=== PATIENT | male | born 1960 | race African-American/Black ===

== ENCOUNTER 2016-12-08 20:08 | Emergency (ER) | payer MEDICAID ==
[~2016-12-08] VITALS: Ht 165.1 cm; Wt 79.4 kg
[~2016-12-08 20:08] MED LIST: CYCLOBENZAPRINE10 MG ORAL; IBUPROFEN600 MG ORAL
[2016-12-08] MEDS ORDERED: Bacitracin Oint UD TOPIC ONE (20:45)
[2016-12-08] MEDS ORDERED: Lidocaine 1% Plain 30 ml INJ ONE (20:45)
[2016-12-08] MEDS ORDERED: BACTRIM DS TAB1 EAC1 ORAL (21:14)
[2016-12-08] MEDS ORDERED: CEPHALEXIN500 MG ORAL (21:14)
[2016-12-08] MEDS ORDERED: HYDROCHLOROTHIA25 MG ORAL (21:21)
[2016-12-08 21:29] VITALS: BP 146/100
--- NOTE | 2016-12-08 21:52 | Emergency Room Report ---
History of Present Illness General Chief Complaint: Eye Problems Source: Patient Present Illness [facility] The patient is a 56-year-old presenting for right eye redness and swelling to the left shoulder. The patient states that he colleague noticed that the patient's eye was red. The patient denies any injury to the eye and denies any changes in vision. He denies any pain to the eye. He denies any excess tearing or discharge from the eye. The patient has noticed a swelling to the left shoulder for the past month. He denies any injury. He denies any injections to this area. He states pain is a 3/10 dull ache and does not radiate. Worse with touch. He denies any discharge from the area. He denies any other symptoms including fever or chills, CP, SOB Allergies: Coded Allergies: PENICILLINS (Verified Adverse Reaction, Unknown, 07/23/15) Patient History Past Medical History: see triage record Pertinent Family History: none Reviewed Nursing Documentation: PMH: Agreed, PSxH: Agreed Nursing Documentation-PMH Past Medical History: No History, Except For Hx Asthma: Yes Review of Systems All Other Systems: negative except mentioned in HPI Physical Exam Vital Signs Date Time Temp Pulse Resp B/P Pulse Ox O2 Delivery O2 Flow Rate FiO2 12/08/16 20:24 98.2 80 16 161/108 99 Room Air Sp02 EP Interpretation: reviewed, normal General Appearance: no apparent distress, alert, GCS 15, non-toxic Head: normocephalic, atraumatic Eyes: right eye other - R eye lateral diffuse erythema. Subconjunctival hemorrhage, bilateral eye EOMI, bilateral eye PERRL ENT: hearing grossly normal, normal pharynx, no angioedema, normal voice Musculoskeletal: normal range of motion, tender - Lateral L shoulder over the abscess Neurologic: alert, oriented x3, responsive, motor strength/tone normal, sensory intact, speech normal Psychiatric: judgement/insight normal, memory normal, mood/affect normal, no suicidal/homicidal ideation Skin: normal color, other - There is a 3cm in diameter fluctuant mass of the L shoulder. TTP Lymphatic: no adenopathy Procedures Incision and Drainage Incision and Drainage : Consent: Verbal Site: L shoulder Blade Size: 11 I & D Procedure: betadine prep, sterile drapes applied Wound Location: upper extremity Wound's Depth, Shape: superficial, linear Wound Length (cm): 3 Wound Explored: contaminated Irrigated w/ Saline (ccs): 100 Anesthesia: 1% Lidocaine Volume Anesthetic (ccs): 3 Splint Applied?: No Sling Applied?: No Patient Tolerated: Well Complications: None Medical Decision Making PA Attestation Dr. Helton is my supervising physician. Patient management was discussed with my supervising physician Diagnostic Impression: Primary Impression: Hypertension Qualified Codes: I10 - Essential (primary) hypertension Additional Impressions: Subconjunctival hemorrhage Qualified Codes: H11.31 - Conjunctival hemorrhage, right eye Abscess ER Course The patient is a 56-year-old presenting for right eye redness and swelling to the left shoulder. Differential diagnoses considered but not limited to: abscess, cellulitis, insect bite Differential diagnoses considered but not limited to subconjunctival hemorrhage , allergic conjunctivitis, bacterial conjunctivitis, viral conjunctivitis, blepharitis, hordeolum PE: hypertensive. afebrile. NAD There is a R eye subconjunctival hemorrhage and an abscess to the L lateral shoulder. Betadine prep was used to clean the skin and surrounding area. One percent lidocaine without epinephrine was used to anesthetize the are of planned incision. A #11 blade was used to make an incision in the central area of fluctuance approximately 1/3 the size of the diameter of the abcess. Once the incision was made, purulent material was expressed with blood. Blunt dissection was then used to release loculations and expressed more purulent material. Once only blood appeard to be expressed from the incision, normal saline was used to irrigate the inside of the abscess. The wound was then cleaned and dressing applied with bacitracin. The patient is given a dose of hydrochlorothiazide in the ER and blood pressure has improved Patient will be discharged home with a prescription for hydrochlorothiazide and antibiotics and needs to followup with primary doctor. ER precautions given Last Vital Signs Date Time Temp Pulse Resp B/P Pulse Ox O2 Delivery O2 Flow Rate FiO2 12/08/16 21:29 97.7 77 16 146/100 97 Room Air Status: improved Disposition: HOME, SELF-CARE Condition: Improved Scripts Hydrochlorothiazide* (HYDROCHLOROTHIAZIDE*) 25 Mg Tablet 25 MG ORAL DAILY, #30 TAB Prov: SIVA DAVIDSON P.A. 12/08/16 Trimethoprim/Sulfamethoxazole 160/800* (BACTRIM DS TABLET*) 1 Each Tablet 1 TAB ORAL TWICE A DAY, #14 TAB Prov: SIVA DAVIDSON 12/08/16 Cephalexin* (KEFLEX*) 500 Mg Capsule 500 MG ORAL EVERY 6 HOURS, #28 CAP Prov: SIVA DAVIDSON 12/08/16 Referrals: [facility] (PCP) Patient Instructions: Abscess, Subconjunctival Hemorrhage Additional Instructions: I discussed my findings with the patient. All questions and concerns have been answered. Treatment and medication compliance have been addressed. I advised the patient that they need to follow up with PMD in 3-5 days. Return to ED if symptoms worsen, new symptoms arise, or if needed for any reason. Patient verbalized understanding of discharge instructions. SIVA DAVIDSON Dec 08, 2016 21:52
== END 2016-12-08 21:30 | disposition home or self-care (01) ==
LOC: EMR 21:17
DX: I10 Essential (primary) hypertension (principal); H11.31 Conjunctival hemorrhage, right eye; L02.414 Cutaneous abscess of left upper limb; J45.909 Unspecified asthma, uncomplicated; Z88.0 Allergy status to penicillin
CPT/HCPCS: 10060; 99284; J2001

== ENCOUNTER 2017-01-23 10:14 | Emergency (ER) | payer MEDICAID ==
[~2017-01-23] VITALS: Ht 165.1 cm; Wt 77.6 kg
[~2017-01-23 10:14] MED LIST changes: +BACTRIM DS TAB1 EAC1 ORAL; +CEPHALEXIN500 MG ORAL; +HYDROCHLOROTHIA25 MG ORAL
[2017-01-23 11:32] VITALS: BP 145/93
[2017-01-23 12:12] LABS: BASOPHILS % (AUTO) 1.5 % (0.0-2.0); EOSINOPHILS % (AUTO) 1.4 % (0.0-3.0); LYMPHOCYTES % (AUTO) 36.9 % (20.0-45.0); MEAN CORPUSCULAR HEMOGLOBIN 28.9 PG (27.0-31.0); MEAN CORPUSCULAR HGB CONC 33.3 G/DL (32.0-36.0); MEAN CORPUSCULAR VOLUME 87 FL (80-99); MEAN PLATELET VOLUME 8.1 FL (6.5-10.1); MONOCYTES % (AUTO) 5.7 % (1.0-10.0); NEUTROPHILS % (AUTO) 54.5 % (45.0-75.0); PLATELET COUNT 226 K/UL (150-450); RED BLOOD COUNT 5.74 M/UL (4.70-6.10); RED CELL DISTRIBUTION WIDTH 11.8 % (11.6-14.8); WHITE BLOOD COUNT 7.6 K/UL (4.8-10.8)
[2017-01-23 12:48] LABS: TROPONIN I < 0.30 ng/mL (<=0.30)
[2017-01-23 12:49] LABS: ALANINE AMINOTRANSFERASE 21 U/L (3-41); ALBUMIN/GLOBULIN RATIO 1.4 (1.0-2.7); ANION GAP 12 (5-15); ASPARTATE AMINO TRANSFERASE 23 U/L (5-40); CALCIUM 9.9 mg/dL (8.6-10.2); CARBON DIOXIDE 23 mEQ/L (20-30); CHLORIDE 103 mEQ/L (98-107); CREATININE 1.1 mg/dL (0.7-1.2); GLOMERULAR FILTRATION RATE > 60 mL/min (>60); HEMOLYSIS 11; POTASSIUM 4.4 mEQ/L (3.4-4.9); SODIUM 138 mEQ/L (135-145); TOTAL PROTEIN 7.1 g/dL (6.6-8.7)
[2017-01-23 12:59] LABS: CKMB 1.8 ng/mL (< 6.7)
[2017-01-23 13:30] VITALS: BP 150/90
--- NOTE | 2017-01-23 14:06 | Diagnostic Imaging Report ---
Indication: Chest pain Technique: One view of the chest Comparison: 10/16/2015 Findings: Lungs and pleural spaces are clear. Heart size is normal. No significant change Impression: No acute process
--- NOTE | 2017-01-23 14:22 | Emergency Room Report ---
History of Present Illness General Chief Complaint: Chest Pain Source: Patient Present Illness HPI Patient presents for chest pain. He states that he woke up a little after 4 this morning with left-sided chest pain and left-sided arm pain. He states that he felt a pressure sensation on his chest. He's never had any similar symptoms. He denies recent illness. He denies cough or congestion. He has no other complaints. Allergies: Coded Allergies: PENICILLINS (Verified Adverse Reaction, Unknown, 07/23/15) Patient History Past Medical History: see triage record, HTN Past Surgical History: none Social History: Reports: smoking, Denies: alcohol use, drug use Reviewed Nursing Documentation: PMH: Agreed, PSxH: Agreed Nursing Documentation-PMH Hx Hypertension: Yes Hx Asthma: Yes Review of Systems All Other Systems: negative except mentioned in HPI Physical Exam Vital Signs Date Time Temp Pulse Resp B/P Pulse Ox O2 Delivery O2 Flow Rate FiO2 01/23/17 10:29 98.2 69 14 165/97 99 Room Air Sp02 EP Interpretation: reviewed, normal General Appearance: no apparent distress, alert, GCS 15, non-toxic Head: normocephalic, atraumatic Eyes: bilateral eye PERRL, bilateral eye normal inspection ENT: hearing grossly normal, normal pharynx, no angioedema, normal voice Neck: full range of motion, supple/symm/no masses Respiratory: chest non-tender, lungs clear, normal breath sounds, speaking full sentences Cardiovascular #1: regular rate, rhythm, no edema Gastrointestinal: normal bowel sounds, non tender, soft, non-distended, no guarding, no rebound Rectal: deferred Musculoskeletal: back normal, gait/station normal, normal range of motion, non- tender Neurologic: alert, oriented x3, responsive, motor strength/tone normal, sensory intact, speech normal Psychiatric: judgement/insight normal, memory normal, mood/affect normal, no suicidal/homicidal ideation Skin: normal color, no rash, warm/dry, well hydrated Medical Decision Making Diagnostic Impression: Primary Impression: Chest pain Additional Impression: Hypertension ER Course This patient presents with left-sided chest pain. He is a moderate risk for acute coronary syndrome. He has a long history of tobacco use. Initial workup to include troponin, EKG and chest x-ray are unremarkable. Other laboratory workup to include CBC, CMP also noncontributory. I felt that given the moderate risk in this patient he could have unstable angina. Therefore, I felt he should be admitted overnight to rule out ACS. The patient's insurance company requested his transfer to the [facility]. Patient is stable for transfer. Labs Test 01/23/17 10:30 White Blood Count 7.6 K/UL (4.8-10.8) Red Blood Count 5.74 M/UL (4.70-6.10) Hemoglobin 16.6 G/DL (14.2-18.0) Hematocrit 49.8 % (42.0-52.0) Mean Corpuscular Volume 87 FL (80-99) Mean Corpuscular Hemoglobin 28.9 PG (27.0-31.0) Mean Corpuscular Hemoglobin Concent 33.3 G/DL (32.0-36.0) Red Cell Distribution Width 11.8 % (11.6-14.8) Platelet Count 226 K/UL (150-450) Mean Platelet Volume 8.1 FL (6.5-10.1) Neutrophils (%) (Auto) 54.5 % (45.0-75.0) Lymphocytes (%) (Auto) 36.9 % (20.0-45.0) Monocytes (%) (Auto) 5.7 % (1.0-10.0) Eosinophils (%) (Auto) 1.4 % (0.0-3.0) Basophils (%) (Auto) 1.5 % (0.0-2.0) Sodium Level 138 mEQ/L (135-145) Potassium Level 4.4 mEQ/L (3.4-4.9) Chloride Level 103 mEQ/L (98-107) Carbon Dioxide Level 23 mEQ/L (20-30) Anion Gap 12 (5-15) Blood Urea Nitrogen 14 mg/dL (7-23) Creatinine 1.1 mg/dL (0.7-1.2) Estimat Glomerular Filtration Rate > 60 mL/min (>60) Glucose Level 112 mg/dL (74-106) Calcium Level 9.9 mg/dL (8.6-10.2) Total Bilirubin 0.7 mg/dL (0.0-1.2) Aspartate Amino Transf (AST/SGOT) 23 U/L (5-40) Alanine Aminotransferase (ALT/SGPT) 21 U/L (3-41) Alkaline Phosphatase 45 U/L (40-129) Total Creatine Kinase 132 U/L (38-174) Creatine Kinase MB 1.8 ng/mL (< 6.7) Creatine Kinase MB Relative Index 1.3 Troponin I < 0.30 ng/mL (<=0.30) Total Protein 7.1 g/dL (6.6-8.7) Albumin 4.2 g/dL (3.5-5.2) Globulin 2.9 g/dL Albumin/Globulin Ratio 1.4 (1.0-2.7) EKG Diagnostic Results Rate: normal Rhythm: NSR ST Segments: no acute changes Rhythm Strip Diag. Results EP Interpretation: yes Rate: 60's Rhythm: NSR, no PVC's, no ectopy Chest X-Ray Diagnostic Results Chest X-Ray Diagnostic Results : Chest X-Ray Ordered: Yes # of Views/Limited/Complete: 1 View Indication: Chest Pain EP Interpretation: No Interpretation: no consolidation, no effusion, no pneumothorax, no acute cardiopulmonary disease Impression: No acute disease Interpreting ER Provider: Tam Last Vital Signs Date Time Temp Pulse Resp B/P Pulse Ox O2 Delivery O2 Flow Rate FiO2 01/23/17 11:32 97.1 64 16 145/93 99 Room Air Status: improved Disposition: XFER SHT-TRM HOSP Condition: Stable Referrals: [facility] (PCP) ALISHA VAUGHN D.O. Jan 23, 2017 14:22
[2017-01-23 15:28] VITALS: BP 140/89
[2017-01-23 15:31] VITALS: BP 140/89
== END 2017-01-23 15:31 | disposition short-term general hospital (02) ==
LOC: EMR 10:40
DX: R07.89 Other chest pain (principal); I10 Essential (primary) hypertension; J45.909 Unspecified asthma, uncomplicated; Z88.0 Allergy status to penicillin
CPT/HCPCS: 36415; 71010; 80053; 82550; 82553; 84484; 85025; 93005; 99285

== ENCOUNTER 2017-03-18 22:13 | Inpatient (IN) | payer MEDICAID ==
[~2017-03-18] VITALS: Ht 165.1 cm; Wt 80.7 kg
[2017-03-18 22:22] VITALS: BP 111/78
[2017-03-18] MEDS ORDERED: Metoprolol 5mg/5ml Inj IVP ONE (22:30)
[2017-03-18 22:56] LABS: BASOPHILS % (AUTO) 1.6 % (0.0-2.0); EOSINOPHILS % (AUTO) 1.6 % (0.0-3.0); LYMPHOCYTES % (AUTO) 42.1 % (20.0-45.0); MEAN CORPUSCULAR HEMOGLOBIN 29.2 PG (27.0-31.0); MEAN CORPUSCULAR HGB CONC 33.3 G/DL (32.0-36.0); MEAN CORPUSCULAR VOLUME 88 FL (80-99); MEAN PLATELET VOLUME 7.4 FL (6.5-10.1); MONOCYTES % (AUTO) 7.6 % (1.0-10.0); NEUTROPHILS % (AUTO) 47.1 % (45.0-75.0); PLATELET COUNT 184 K/UL (150-450); RED BLOOD COUNT 5.12 M/UL (4.70-6.10); RED CELL DISTRIBUTION WIDTH 11.8 % (11.6-14.8)
[2017-03-18 23:14] LABS: TROPONIN I < 0.30 ng/mL (<=0.30)
[2017-03-18 23:17] LABS: ALANINE AMINOTRANSFERASE 22 U/L (3-41); ALBUMIN/GLOBULIN RATIO 1.6 (1.0-2.7); ANION GAP 14 (5-15); ASPARTATE AMINO TRANSFERASE 21 U/L (5-40); CALCIUM 9.1 mg/dL (8.6-10.2); CARBON DIOXIDE 25 mEQ/L (20-30); CHLORIDE 104 mEQ/L (98-107); CREATININE 1.1 mg/dL (0.7-1.2); GLOMERULAR FILTRATION RATE > 60 mL/min (>60); HEMOLYSIS 8; POTASSIUM 3.2 mEQ/L (3.4-4.9); SODIUM 143 mEQ/L (135-145); TOTAL PROTEIN 6.3 g/dL (6.6-8.7)
[2017-03-18 23:27] LABS: CKMB 1.8 ng/mL (< 6.7)
[2017-03-19] MEDS ORDERED: dilTIAZem HCl 25mg/5ml Inj IV PRN (01:00)
[2017-03-19] MEDS ORDERED: Albuterol/Ipratropium 3ml neb HHN PRN (01:00)
[2017-03-19] MEDS ORDERED: Metoprolol 5mg/5ml Inj IVP PRN (01:00)
[2017-03-19] MEDS ORDERED: Enalaprilat 2.5mg/2ml Inj IV PRN (01:00)
[2017-03-19] MEDS ORDERED: Nitroglycerin Subl 0.4mg tab SL PRN (01:00)
[2017-03-19] MEDS ORDERED: Miralax 17gm pkt ORAL PRN (01:00)
[2017-03-19] MEDS ORDERED: Morphine Sulfate 2mg/ml Inj IVP PRN (01:00)
--- NOTE | 2017-03-19 01:56 | Emergency Room Report ---
History of Present Illness General Chief Complaint: Syncope Source: Patient Present Illness HPI 57-year-old male presents to ED complaining syncopal episode. Patient states he passed out at home and hit his head. Denies any headaches at this time. Per EMS patient is in rapid A. fib. Heart rate to the 130s. patient denies any history of A. fib. Denies fevers or chills. Denies chest pain or shortness of breath. No other aggravating relieving factors. Denies any other associated symptoms Allergies: Coded Allergies: PENICILLINS (Verified Adverse Reaction, Unknown, 07/23/15) Patient History Past Medical History: HTN, asthma Past Surgical History: none Pertinent Family History: none Social History: Denies: smoking, alcohol use, drug use Immunizations: UTD Reviewed Nursing Documentation: PMH: Agreed, PSxH: Agreed Nursing Documentation-PMH Hx Hypertension: Yes Hx Asthma: Yes Review of Systems All Other Systems: negative except mentioned in HPI Physical Exam Vital Signs Date Time Temp Pulse Resp B/P (MAP) Pulse Ox O2 Delivery O2 Flow Rate FiO2 03/18/17 22:05 98.1 127 18 131/82 98 Room Air Sp02 EP Interpretation: reviewed, normal General Appearance: no apparent distress, alert, GCS 15, non-toxic Head: normocephalic, atraumatic Eyes: bilateral eye normal inspection, bilateral eye PERRL ENT: hearing grossly normal, normal pharynx, no angioedema, normal voice Neck: full range of motion, supple/symm/no masses Respiratory: chest non-tender, lungs clear, normal breath sounds, speaking full sentences Cardiovascular #1: no edema, tachycardia Cardiovascular #2: 2+ carotid (R), 2+ carotid (L), 2+ radial (R), 2+ radial (L) , 2+ dorsalis pedis (R), 2+ dorsalis pedis (L) Gastrointestinal: normal bowel sounds, non tender, soft, non-distended, no guarding, no rebound Rectal: deferred Genitourinary: normal inspection, no CVA tenderness Musculoskeletal: back normal, gait/station normal, normal range of motion, non- tender Neurologic: alert, oriented x3, responsive, motor strength/tone normal, sensory intact, speech normal Psychiatric: judgement/insight normal, memory normal, mood/affect normal, no suicidal/homicidal ideation Reflexes: 3+ bicep (R), 3+ bicep (L), 3+ tricep (R), 3+ tricep (L), 3+ knee (R) , 3+ knee (L) Skin: normal color, no rash, warm/dry, well hydrated Lymphatic: no adenopathy Procedures Critical Care Time Critical Care Time i. I feel this is a highly complex case requiring extensive working including EKG/Rhythm strip, Xray/CT/US, Blood/urine lab work, repeat exams while in ED, and administration of strong opiates/narcotics for pain control, admission to hospital or close patient follow up. Total time: 30 min bedside evaluation and treatment excludes procedures (EKG). Reason for critical care: rapid afib with RVR Possible complications: hypotension, hypertension, AK, shock, arrhythmias, metabolic acidosis, end organ damage, respiratory failure. Interventions: labs, IVFS, EKG, CXR, CT Head. Lopressor IV Course: Patient brought in status post syncopal episode. EKG shows rapid A. fib with RVR. Patient converted with IV Lopressor. CT head negative. Labs unremarkable. Consultations: nursing staff, EMS, family Performed by: Dr Crews Tolerated well condition = serious j. because of unstable vital signs this patient had a condition that could potentially threaten life or limb. I feel this is a critical patient who required my full attention while patient was considered critical. Total Critical Care Time excluding procedures was greater than 35 minutes Medical Decision Making Diagnostic Impression: Primary Impression: Atrial fibrillation with rapid ventricular response Additional Impression: Syncope Qualified Codes: R55 - Syncope and collapse ER Course Hospital Course 57-year-old male presents to ED status post syncopal episode. EKG shows A. fib Differential diagnoses include: AK/unstable angina, contusion, muscle strain, PTX, rib fracture, pneumonia, Clinical course Patient placed on stretcher. on membership advisor which shows A. fib with RVR. Lopressor given with cardioversion. After initial history and physical I ordered labs, EKG, chest x-ray labs reviewed- no leukocytosis, hemoglobin/hematocrit ok, electrolytes okay, troponins negative Chest x-ray- unremarkable EKG - afib with RVR, no ischemic changes interppreted by me CT head unremarkable case discussed with Dr. Sanderson and he agreed to accept the patient to his service for further care and support I. I feel this is a highly complex case requiring extensive working including EKG/Rhythm strip, Xray/CT/US, Blood/urine lab work, repeat exams while in ED, and administration of strong opiates/narcotics for pain control, admission to hospital or close patient follow up. Diagnosis - afib, syncope admitted to telemetry in serious condition Labs Test 03/18/17 22:34 White Blood Count 11.0 K/UL (4.8-10.8) Red Blood Count 5.12 M/UL (4.70-6.10) Hemoglobin 15.0 G/DL (14.2-18.0) Hematocrit 45.0 % (42.0-52.0) Mean Corpuscular Volume 88 FL (80-99) Mean Corpuscular Hemoglobin 29.2 PG (27.0-31.0) Mean Corpuscular Hemoglobin Concent 33.3 G/DL (32.0-36.0) Red Cell Distribution Width 11.8 % (11.6-14.8) Platelet Count 184 K/UL (150-450) Mean Platelet Volume 7.4 FL (6.5-10.1) Neutrophils (%) (Auto) 47.1 % (45.0-75.0) Lymphocytes (%) (Auto) 42.1 % (20.0-45.0) Monocytes (%) (Auto) 7.6 % (1.0-10.0) Eosinophils (%) (Auto) 1.6 % (0.0-3.0) Basophils (%) (Auto) 1.6 % (0.0-2.0) Sodium Level 143 mEQ/L (135-145) Potassium Level 3.2 mEQ/L (3.4-4.9) Chloride Level 104 mEQ/L (98-107) Carbon Dioxide Level 25 mEQ/L (20-30) Anion Gap 14 (5-15) Blood Urea Nitrogen 14 mg/dL (7-23) Creatinine 1.1 mg/dL (0.7-1.2) Estimat Glomerular Filtration Rate > 60 mL/min (>60) Glucose Level 123 mg/dL (74-106) Calcium Level 9.1 mg/dL (8.6-10.2) Total Bilirubin 0.6 mg/dL (0.0-1.2) Aspartate Amino Transf (AST/SGOT) 21 U/L (5-40) Alanine Aminotransferase (ALT/SGPT) 22 U/L (3-41) Alkaline Phosphatase 34 U/L (40-129) Total Creatine Kinase 139 U/L (38-174) Creatine Kinase MB 1.8 ng/mL (< 6.7) Creatine Kinase MB Relative Index 1.2 Troponin I < 0.30 ng/mL (<=0.30) Total Protein 6.3 g/dL (6.6-8.7) Albumin 3.9 g/dL (3.5-5.2) Globulin 2.4 g/dL Albumin/Globulin Ratio 1.6 (1.0-2.7) EKG Diagnostic Results Rate: tachycardiac Rhythm: other - afib wtih RVR ST Segments: no acute changes ASA given to the pt in ED: No Rhythm Strip Diag. Results EP Interpretation: yes Rhythm: no PVC's, no ectopy Chest X-Ray Diagnostic Results Chest X-Ray Diagnostic Results : Chest X-Ray Ordered: Yes # of Views/Limited/Complete: 1 View Indication: Other - syncope EP Interpretation: Yes Interpretation: no consolidation, no effusion, no pneumothorax, no acute cardiopulmonary disease Impression: No acute disease Electronically Signed by: Electronically signed by Israel Crews MD CT/MRI/US Diagnostic Results CT/MRI/US Diagnostic Results : Imaging Test Ordered: CT head Impression no acute process Last Vital Signs Date Time Temp Pulse Resp B/P (MAP) Pulse Ox O2 Delivery O2 Flow Rate FiO2 03/18/17 22:48 120 96/61 03/18/17 22:22 98.1 18 98 Room Air Status: improved Disposition: ADMITTED INPATIENT Condition: Serious Referrals: [facility] (PCP) ISRAEL CREWS M.D. Mar 19, 2017 01:56
[2017-03-19 02:35] VITALS: BP 103/76
[2017-03-19 04:09] LABS: TROPONIN I < 0.30 ng/mL (<=0.30)
[2017-03-19 04:48] VITALS: BP 101/70
[2017-03-19] MEDS ORDERED: LISINOPRIL20 MG ORAL (04:51)
[2017-03-19 05:25] VITALS: BP 113/79
[2017-03-19 08:11] VITALS: BP 117/69
[2017-03-19] MEDS ORDERED: Digoxin 0.5mg/2ml Inj IVP SCH (09:00)
--- NOTE | 2017-03-19 09:40 | Diagnostic Imaging Report ---
Indication: Headache and syncope Technique: Contiguous 5 mm thick transaxial imaging of the head obtained in a Siemens Sensation [address] scanner. Soft tissue and bone windows generated. Total Dose length Product (DLP): [address] Dose Index Volume (CTDIvol): 70.38, 0.15 mGy Comparison: 10/16/15 Findings: The size and configuration of the cortical sulci, basal cisterns, and ventricles are within normal limits for age. There is no mass effect, midline shift, or edema identified. There is no evidence of acute hemorrhage or abnormal intra-axial or extra-axial fluid collections. The bones and soft tissues are unremarkable. Impression: No mass effect, edema or acute bleed. The CT scanner at [facility] is accredited by the [employer] and the scans are performed using dose optimization techniques as appropriate to a performed exam including Automatic Exposure control.
[2017-03-19 11:28] VITALS: BP 106/71
--- NOTE | 2017-03-19 11:28 | Diagnostic Imaging Report ---
Indication: Dyspnea Comparison: None A single view chest radiograph was obtained. Findings: Cardiomediastinal appearance is within normal limits for age. Pulmonary vascularity is appropriate. The diaphragmatic contour is smooth and costophrenic angles are sharp. No pleural effusions are identified. The bones are unremarkable. Impression: No acute findings
--- NOTE | 2017-03-19 13:58 | History and Physical ---
History of Present Illness General Date patient seen: Mar 19, 2017 Reason for Hospitalization: Syncope Present Illness HPI 57-year-old male with hx of irregular heart beat, htn presented to ED complaining syncopal episode. Patient states he passed out at home and hit his head. Denies any headaches at this time. Per EMS patient was in rapid A. fib. Heart rate to the 130s. He is admitted to telemetry for further work up. Allergies: Coded Allergies: PENICILLINS (Verified Adverse Reaction, Unknown, 07/23/15) Medication History Scheduled Cephalexin* (Keflex*), 500 MG ORAL EVERY 6 HOURS Hydrochlorothiazide* (Hydrochlorothiazide*), 25 MG ORAL DAILY Ibuprofen* (Motrin*), 600 MG ORAL THREE TIMES A DAY Lisinopril (Lisinopril*), 20 MG ORAL DAILY, (Reported) Trimethoprim/Sulfamethoxazole 160/800* (Bactrim Ds Tablet*), 1 TAB ORAL TWICE A DAY Scheduled PRN Cyclobenzaprine Hcl* (Flexeril*), 10 MG ORAL TID PRN for Muscle Spasm Patient History Healthcare decision maker Resuscitation status Full Code Advanced Directive on File Past Medical/Surgical History Past Medical/Surgical History: (1) HTN (hypertension) Review of Systems All Other Systems: negative except mentioned in HPI Physical Exam General Appearance: WD/WN Lines, tubes and drains: peripheral HEENT: normocephalic, atraumatic Neck: non-tender, normal alignment Respiratory/Chest: chest wall non-tender, lungs clear Breasts: no masses Cardiovascular/Chest: normal peripheral pulses Abdomen: normal bowel sounds Genitourinary/Rectal: normal genital exam Last 24 Hour Vital Signs Date Time Temp Pulse Resp B/P (MAP) Pulse Ox O2 Delivery O2 Flow Rate FiO2 03/19/17 12:00 86 03/19/17 11:28 97.7 85 20 106/71 96 Room Air 03/19/17 09:06 104 03/19/17 08:11 97.7 96 20 117/69 95 Room Air 03/19/17 08:00 89 03/19/17 07:35 96 18 Room Air 21 03/19/17 05:25 97.3 97 18 113/79 99 Room Air 03/19/17 05:04 98.3 105 12 101/70 99 Room Air 03/19/17 04:48 98.3 105 12 101/70 99 Room Air 03/19/17 02:35 98.2 106 14 103/76 99 Room Air 03/18/17 22:48 120 96/61 03/18/17 22:22 98.1 120 18 111/78 98 Room Air 03/18/17 22:05 98.1 127 18 131/82 98 Room Air Intake and Output 03/19/17 03/20/17 19:00 07:00 Intake Total 720 ml Balance 720 ml Intake Oral 720 ml # Voids 2 Laboratory Tests Test 03/18/17 22:34 03/19/17 02:44 03/19/17 03:50 White Blood Count 11.0 K/UL (4.8-10.8) H Red Blood Count 5.12 M/UL (4.70-6.10) Hemoglobin 15.0 G/DL (14.2-18.0) Hematocrit 45.0 % (42.0-52.0) Mean Corpuscular Volume 88 FL (80-99) Mean Corpuscular Hemoglobin 29.2 PG (27.0-31.0) Mean Corpuscular Hemoglobin Concent 33.3 G/DL (32.0-36.0) Red Cell Distribution Width 11.8 % (11.6-14.8) Platelet Count 184 K/UL (150-450) Mean Platelet Volume 7.4 FL (6.5-10.1) Neutrophils (%) (Auto) 47.1 % (45.0-75.0) Lymphocytes (%) (Auto) 42.1 % (20.0-45.0) Monocytes (%) (Auto) 7.6 % (1.0-10.0) Eosinophils (%) (Auto) 1.6 % (0.0-3.0) Basophils (%) (Auto) 1.6 % (0.0-2.0) Sodium Level 143 mEQ/L (135-145) Potassium Level 3.2 mEQ/L (3.4-4.9) L Chloride Level 104 mEQ/L (98-107) Carbon Dioxide Level 25 mEQ/L (20-30) Anion Gap 14 (5-15) Blood Urea Nitrogen 14 mg/dL (7-23) Creatinine 1.1 mg/dL (0.7-1.2) Estimat Glomerular Filtration Rate > 60 mL/min (>60) Glucose Level 123 mg/dL (74-106) H Calcium Level 9.1 mg/dL (8.6-10.2) Total Bilirubin 0.6 mg/dL (0.0-1.2) Aspartate Amino Transf (AST/SGOT) 21 U/L (5-40) Alanine Aminotransferase (ALT/SGPT) 22 U/L (3-41) Alkaline Phosphatase 34 U/L (40-129) L Total Creatine Kinase 139 U/L (38-174) Creatine Kinase MB 1.8 ng/mL (< 6.7) Creatine Kinase MB Relative Index 1.2 Troponin I < 0.30 ng/mL (<=0.30) < 0.30 ng/mL (<=0.30) Total Protein 6.3 g/dL (6.6-8.7) L Albumin 3.9 g/dL (3.5-5.2) Globulin 2.4 g/dL Albumin/Globulin Ratio 1.6 (1.0-2.7) Urine Opiates Screen Negative (NEGATIVE) Urine Barbiturates Screen Negative (NEGATIVE) Phencyclidine (PCP) Screen Negative (NEGATIVE) Urine Amphetamines Screen Negative (NEGATIVE) Urine Benzodiazepines Screen Negative (NEGATIVE) Urine Cocaine Screen Negative (NEGATIVE) Urine Marijuana (THC) Screen Positive (NEGATIVE) H Height (Feet): 5 Height (Inches): 5.00 Weight (Pounds): 178 Medications Current Medications Medications (Trade) Dose Ordered Sig/Eduardo Route PRN Reason Start Time Stop Time Status Last Admin Dose Admin Acetaminophen (Tylenol) 650 mg Q4H PRN ORAL FEVER 03/19/17 01:00 04/18/17 00:59 Albuterol/ Ipratropium (DuoNeb 0.5-3(2.5)mg/3ml) 3 ml Q4H PRN HHN Shortness of Breath 03/19/17 01:00 03/24/17 00:59 Digoxin (Lanoxin) 0.25 mg DAILY IVP 03/19/17 09:00 04/18/17 08:59 03/19/17 09:06 Diltiazem HCl (Cardizem) 10 mg Q1H PRN IV heart rate more than 120, 03/19/17 01:00 04/18/17 00:59 Enalaprilat (Vasotec) 2.5 mg Q6H PRN IV sbp more than 160 03/19/17 01:00 04/18/17 00:59 Metoprolol Tartrate (Lopressor) 5 mg Q1H PRN IVP heart rate more than 140 03/19/17 01:00 04/18/17 00:59 Morphine Sulfate (Morphine Sulfate) 2 mg Q4H PRN IVP severe Pain (Pain Scale 7-10) 03/19/17 01:00 03/26/17 00:59 Nitroglycerin (Ntg) 0.4 mg Q5M PRN SL Prn Chest Pain 03/19/17 01:00 04/18/17 00:59 Ondansetron HCl (Zofran) 4 mg Q6H PRN IVP Nausea & Vomiting 03/19/17 01:00 04/18/17 00:59 Pantoprazole (Protonix) 40 mg DAILY ORAL 03/19/17 09:00 04/18/17 08:59 03/19/17 09:10 Polyethylene Glycol (Miralax) 17 gm DAILYPRN PRN ORAL Constipation 03/19/17 01:00 04/18/17 00:59 Temazepam (Restoril) 15 mg HSPRN PRN ORAL Insomnia 03/19/17 01:00 03/26/17 00:59 Assessment/Plan Problem List: (1) Atrial fibrillation with rapid ventricular response ICD Codes: I48.91 - Unspecified atrial fibrillation SNOMED: 330685675144070 (2) HTN (hypertension) ICD Codes: I10 - Essential (primary) hypertension SNOMED: 36719004 (3) Syncope ICD Codes: R55 - Syncope and collapse SNOMED: 761354947 Qualifiers: Qualified Codes: R55 - Syncope and collapse Assessment/Plan echocardiogram cardio to see monitor heart rate. cardiology will decide about anticoagulation VELIA STEVENS Mar 19, 2017 13:58
--- NOTE | 2017-03-19 15:27 | Neurology Progress Note ---
Objective Physical Exam Last Vital Signs Date Time Temp Pulse Resp B/P (MAP) Pulse Ox O2 Delivery O2 Flow Rate FiO2 03/19/17 12:00 86 03/19/17 11:28 97.7 20 106/71 96 Room Air 03/19/17 07:35 21 Laboratory Tests Test 03/18/17 22:34 03/19/17 02:44 03/19/17 03:50 White Blood Count 11.0 K/UL (4.8-10.8) H Red Blood Count 5.12 M/UL (4.70-6.10) Hemoglobin 15.0 G/DL (14.2-18.0) Hematocrit 45.0 % (42.0-52.0) Mean Corpuscular Volume 88 FL (80-99) Mean Corpuscular Hemoglobin 29.2 PG (27.0-31.0) Mean Corpuscular Hemoglobin Concent 33.3 G/DL (32.0-36.0) Red Cell Distribution Width 11.8 % (11.6-14.8) Platelet Count 184 K/UL (150-450) Mean Platelet Volume 7.4 FL (6.5-10.1) Neutrophils (%) (Auto) 47.1 % (45.0-75.0) Lymphocytes (%) (Auto) 42.1 % (20.0-45.0) Monocytes (%) (Auto) 7.6 % (1.0-10.0) Eosinophils (%) (Auto) 1.6 % (0.0-3.0) Basophils (%) (Auto) 1.6 % (0.0-2.0) Sodium Level 143 mEQ/L (135-145) Potassium Level 3.2 mEQ/L (3.4-4.9) L Chloride Level 104 mEQ/L (98-107) Carbon Dioxide Level 25 mEQ/L (20-30) Anion Gap 14 (5-15) Blood Urea Nitrogen 14 mg/dL (7-23) Creatinine 1.1 mg/dL (0.7-1.2) Estimat Glomerular Filtration Rate > 60 mL/min (>60) Glucose Level 123 mg/dL (74-106) H Calcium Level 9.1 mg/dL (8.6-10.2) Total Bilirubin 0.6 mg/dL (0.0-1.2) Aspartate Amino Transf (AST/SGOT) 21 U/L (5-40) Alanine Aminotransferase (ALT/SGPT) 22 U/L (3-41) Alkaline Phosphatase 34 U/L (40-129) L Total Creatine Kinase 139 U/L (38-174) Creatine Kinase MB 1.8 ng/mL (< 6.7) Creatine Kinase MB Relative Index 1.2 Troponin I < 0.30 ng/mL (<=0.30) < 0.30 ng/mL (<=0.30) Total Protein 6.3 g/dL (6.6-8.7) L Albumin 3.9 g/dL (3.5-5.2) Globulin 2.4 g/dL Albumin/Globulin Ratio 1.6 (1.0-2.7) Urine Opiates Screen Negative (NEGATIVE) Urine Barbiturates Screen Negative (NEGATIVE) Phencyclidine (PCP) Screen Negative (NEGATIVE) Urine Amphetamines Screen Negative (NEGATIVE) Urine Benzodiazepines Screen Negative (NEGATIVE) Urine Cocaine Screen Negative (NEGATIVE) Urine Marijuana (THC) Screen Positive (NEGATIVE) H Impression/Recommendations Recommendations #[id number] RED PARRA Mar 19, 2017 15:27
[2017-03-19 16:00] VITALS: BP 133/96
--- NOTE | 2017-03-19 22:00 | Consultation ---
DATE OF CONSULTATION: 03/19/2017 NEUROLOGICAL CONSULTATION CONSULTING PHYSICIAN: Ced Suazo M.D. REQUESTING PHYSICIAN: Ashley Sanderson M.D. History Of Present Illness: The patient informed me that yesterday being a day off, he decided to drink more than usual beers and got "drunk," had some weed smoking, subsequently developed nausea and vomiting. He had to lie down to rest, felt some improvement, but when he stood up to go he felt very dizzy, lost consciousness, and fell to the ground. This was witnessed by the who did not report any paroxysmal activities, no urine or bowel incontinence. No tongue biting. Paramedics were called to the scene. They found him fully awake x3, lying in the bed after having "syncopal episode." His blood pressure was 102/81 and heart rate of 66. Blood sugar 121. The patient was brought to emergency room. According to EMS, he was in rapid atrial fibrillation with heart rate of 130. His vital signs on admission included blood pressure 131/82 and heart rate of 127. Diagnosed with atrial fibrillation with rapid ventricular response. The patient was maintained on cardiac monitoring, which confirmed presence of atrial fibrillation. Lopressor was given for cardioversion. His initial diagnostic studies included CAT scan of the brain revealing no mass lesions. Chest x-ray revealed no acute findings. Lab work with CBC studies with WBC 11.0. Chemistry panel with blood sugar 123. Normal troponin. Toxicology positive for marijuana. Past Medical History: The patient has a history of irregular heartbeat and hypertension. Medications: Treatment prior to admission included Flexeril 10 mg p.r.n. for muscle spasms, Keflex, hydrochlorothiazide, ibuprofen, lisinopril, and Bactrim. ALLERGIES: Penicillin. Social History: Lives with his . He has a social alcohol drinking and marijuana smoking. 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 No illicit drug use. FAMILY HISTORY: Noncontributory. Review Of Symptoms: The patient indicated at this time he is feeling fairly well. He has no complaints. No headache. No dizziness. No chest pain. No palpitations. No respiratory problems. PHYSICAL EXAMINATION: General: Well-developed and well-nourished, muscular type man, not in acute distress. Vital Signs: Now stable, blood pressure 106/71, heart rate of 85, and afebrile. HEENT: Head, normocephalic. There is no evidence of trauma. Eyes, ears, and throat are clear. NECK: Supple. No meningeal signs. Musculoskeletal Examination: Unremarkable. No deformities. Peripheral pulses 1+ symmetric. Mental Status: Alert and oriented x3 with no evidence of aphasia or apraxia. Cognition is normal. Cranial Nerve II: Pupils both responding to light and accommodation. Extraocular movements intact. No nystagmus. CRANIAL NERVE V: Normal corneal responses. CRANIAL NERVE VII: No facial asymmetry. CRANIAL NERVE VIII: Normal hearing. CRANIAL NERVES IX THROUGH XII: Within normal limits. Motor Examination: Normal muscle tone. Strength 5/5 in all extremities. No involuntary movement. Deep tendon reflexes 1+ symmetric with downgoing toes on both sides. SENSORY EXAMINATION: Normal modalities. Gait is stable. IMPRESSION: 1. History of transient loss of consciousness probably representing a vasovagal syncope. 2. Atrial fibrillation with rapid ventricular response. 3. Hypertension. RECOMMENDATIONS: 1. The patient to be seen by cardiology for further assessment. 2. By mouth hydration. 3. Orthostatic blood pressure measurement. 4. Advised to hold with alcohol and marijuana. 5. Recheck a carotid duplex study and 2D echocardiogram. Thank you for allowing me to see this interesting patient in neurological consultation. Ced Suazo M.D. DR: YOLY JOB#: [id number] CC:
--- NOTE | 2017-03-20 19:21 | Cardiology Report ---
APPROVED REPORT EXAM: Two-dimensional and M-mode echocardiogram with Doppler and color Doppler. INDICATION LV function M-Mode DIMENSIONS IVSd1.1 (0.7-1.1cm)Left Atrium (MM)2.5 (1.6-4.0cm) LVDd4.7 (3.5-5.6cm)Aortic Root3.3 (2.0-3.7cm) PWd0.7 (0.7-1.1cm)Aortic Cusp Exc.2.1 (1.5-2.0cm) LVDs3.1 (2.5-4.0cm) PWs1.1 cm Normal left ventricular chamber size, systolic function and wall motion. Left ventricular ejection fraction estimated to be 60 %. Mild to moderate left ventricular hypertrophy. Anterior Echo-free space, may be due to pericardial fat or effusion. Mild bi-atrial enlargement. Right ventricular chamber size is within normal limits. Focal aortic valve sclerosis with adequate cusp excursion. Thickened mitral valve leaflets with normal excursion. Mitral annulus and aortic root calcification. Normal pulmonic valve structure. Normal tricuspid valve structure. IVC at normal size with physiologic collapse. A color flow and spectral Doppler study was performed and revealed: Moderate aortic regurgitation. Trace mitral regurgitation. Can not determine left ventricular diastolic function by mitral diastolic velocities due to atrial fibrillation. Trace to mild tricuspid regurgitation. Tricuspid systolic velocities suggests peak right ventricular systolic pressure of 30 mmHg.
--- NOTE | 2017-03-21 08:11 | Discharge Summary ---
Discharge Summary Hospital Course Date of Admission Mar 19, 2017 at 00:00 Date of Discharge Mar 19, 2017 at 19:10 Admitting Diagnosis afib HPI Ashish Reyes is a 57 year old male who was admitted on Mar 19, 2017 at 00 :00 for Atrial Fibrillation Hospital Course [id number] Discharge Discharge Disposition Patient left AMA Discharge Diagnoses: Chelle Conte NP Mar 21, 2017 08:11
--- NOTE | 2017-03-21 23:30 | Discharge Summary 2 SIG ---
DATE OF ADMISSION: 03/19/2017 DATE OF DISCHARGE: 03/19/2017 INTAKE RN: Ced Suazo M.D. Brief Hospital Course: The patient is a 57-year-old male, who presented to ED complaining of syncopal episode. He has a history of irregular heartbeat and hypertension and stated that he passed out at home and hit his head. Per EMS report, the patient was in rapid atrial fibrillation at a heart rate of 130s. On evaluation at ED, EKG showed atrial fibrillation with rapid ventricular response. Chest x-ray done was unremarkable. He had CT of the head that showed no mass effect, edema, or acute bleed. Chest x-ray showed no acute findings. Troponin was negative. There was no leukocytosis. He was then admitted to telemetry for evaluation of fall and rapid heart rate. He was seen by Dr. Suazo. Urine toxicology was positive for marijuana. He was given Lopressor IV for cardioversion. He had an echocardiogram done that showed EF of 60%, however, full treatment was not carried out as the patient signed out against medical advice. FINAL DIAGNOSES: 1. Atrial fibrillation with rapid ventricular response. 2. Hypertension. 3. Syncope. 4. Noncompliance as the patient signed out against medical advice. 5. Transient loss of consciousness, probably secondary to vasovagal syncope. Ashley Sanderson M.D. I have been assigned to dictate discharge summary on this account and I was not involved in the patient's management. Chelle Conte N.P. DR: BROOKE JOB#: [id number] CC:
== END 2017-03-19 19:10 | disposition left against medical advice (07) | DRG 201 ==
LOC: EDBD 22:13 → EMR 22:50 → 2E 03-19 → EDBEDREQ 03-19 01:28
DX: I48.91 Unspecified atrial fibrillation (principal); I10 Essential (primary) hypertension; R55 Syncope and collapse; Z91.19 Patient's noncompliance with other medical treatment and regimen; Z88.0 Allergy status to penicillin
CPT/HCPCS: 36415; 70450; 71010; 80053; 80300; 82550; 82553; 84484; 85025; 93005; 93306; 94664; J8499

== ENCOUNTER 2017-12-25 12:12 | Emergency (ER) | payer MEDICAID ==
[~2017-12-25] VITALS: Ht 165.1 cm; Wt 82.6 kg
[~2017-12-25 12:12] MED LIST changes: +LISINOPRIL20 MG ORAL
[2017-12-25 12:21] VITALS: BP 125/79
[2017-12-25] MEDS ORDERED: Tetanus/Diptheria/Pertussis Vaccine 0.5ml Syr IM ONE (13:00)
--- NOTE | 2017-12-25 13:05 | Emergency Room Report ---
History of Present Illness General Chief Complaint: Skin Rash/Abscess Source: Patient, Medical Record Present Illness HPI 57-year-old male patient presents ER complaining of bug bite on the posterior of his right side of neck since yesterday. reports itchiness at site of bite. Denies seeing bug. Reports began as a pimple slowly grew in size. Reports no fever, chest pain, shortness of breath, intractable vomiting, swelling. Reports mild drainage from site of bite. Reports taking topical Benadryl for relief of symptoms. denies other acute symptoms. Denies history of diabetes.not up-to-date on tetanus vaccination. Allergies: Coded Allergies: PENICILLINS (Verified Adverse Reaction, Unknown, 07/23/15) Patient History Past Medical History: see triage record Reviewed Nursing Documentation: PMH: Agreed; PSxH: Agreed Nursing Documentation-PMH Past Medical History: No History, Except For Hx Cardiac Problems: Yes - AFIB Hx Hypertension: Yes Hx Asthma: Yes Hx Neurological Problems: No Review of Systems All Other Systems: negative except mentioned in HPI Physical Exam Vital Signs Date Time Temp Pulse Resp B/P (MAP) Pulse Ox O2 Delivery O2 Flow Rate FiO2 12/25/17 12:14 98.2 77 18 125/79 96 Room Air 98.2 Sp02 EP Interpretation: reviewed, normal General Appearance: well appearing, no apparent distress, alert, GCS 15, non- toxic Head: normocephalic, atraumatic Eyes: bilateral eye normal inspection, bilateral eye PERRL ENT: hearing grossly normal, normal pharynx, no angioedema, normal voice, uvula midline, moist mucus membranes Neck: full range of motion Respiratory: lungs clear, normal breath sounds, no rhonchi, no respiratory distress, no accessory muscle use, no wheezing, speaking full sentences Cardiovascular #1: regular rate, rhythm, no edema Musculoskeletal: back normal, digits/nails normal, gait/station normal, normal range of motion, non-tender Neurologic: alert, oriented x3, responsive, motor strength/tone normal, sensory intact Psychiatric: mood/affect normal Skin: other - posterior right neck: 2- 3 cm area of erythema and swelling, no fluctuance, does not come to a point, no active draining, blood or pus Medical Decision Making PA Attestation Dr. Casillas is my supervising Physician whom patient management has been discussed with. Diagnostic Impression: Primary Impression: Bug bite ER Course Pt. presents to the ED c/o bug bite. Ddx considered but are not limited to rash, cellulitis, abscess, atopic dermatitis, angioedema., allergic reaction, DVT, abscess, bug bite. Vital signs: are WNL, pt. is afebrile ER COURSE: No fluctuance, does not come to a point, bedside ultrasound does not show any pockets of pus, does not require drainage at this time. Likely cellulitis. instructed patient follow up closely in 2 days for wound check with PCP or in ER. Follow-up with primary care provider for treatment and evaluation. Will provide antibiotic coverage at this time. Apply topical antibiotic to the affected area. Apply warm compresses. Return ER immediately for worsening of symptoms including but not limited to intractable vomiting, fever, spreading of infection, red streaking, chest pain, shortness of breath. provided with TDAP. Patient seen and evaluated by, Dr. Casillas agrees with assessment and treatment plan. DISCHARGE: -Rx provided for Clindamycin -Rx provided for Bactrim -Rx provided for Bactroban At this time pt. is stable for d/c to home. Patient resting comfortably in no acute distress, nontoxic appearing. Will provide printed patient care instructions, and any necessary prescriptions. Patient instructed to complete current course of antibiotics. Care plan and follow up instructions have been discussed with the patient prior to discharge. Patient instructed to follow-up with primary care provider in 2-3 days and discuss further wound check and referral to cream separator operator. Patient questions asked and answered. ER precautions given. Patient instructed to return to ER immediately for any new or worsening of symptoms including but not limited to increasing SOB, persistent fever, intractable vomiting, calf pain. - Please note that this Emergency Department Report was dictated using [employer] inspector technology software, occasionally this can lead to erroneous entry secondary to interpretation by the dictation equipment. Last Vital Signs Date Time Temp Pulse Resp B/P (MAP) Pulse Ox O2 Delivery O2 Flow Rate FiO2 12/25/17 12:21 98.2 18 125/79 96 Room Air 98.2 12/25/17 12:14 77 Disposition: HOME, SELF-CARE Condition: Stable Scripts Mupirocin Calcium (Bactroban) 15 Gm Cream..g. 1 APPLIC TOPIC THREE TIMES A DAY, #15 GM Prov: Rory Lam 12/25/17 Trimethoprim/Sulfamethoxazole 160/800* (BACTRIM DS TABLET*) 1 Each Tablet 1 TAB ORAL TWICE A DAY for 7 Days, #14 TAB Prov: Rory Lam 12/25/17 Clindamycin HCl (Clindamycin HCl) 300 Mg Capsule 300 MG ORAL Q12HR, #24 CAP Prov: Rory Lam 12/25/17 Referrals: NON PHYSICIAN (PCP) Patient Instructions: Cellulitis, [id number], Insect Bite, [id number] Additional Instructions: Followup with primary care provider in 2-3 days wound check. Apply warm compresses to affected area. Take medications as directed. Continue to take Benadryl as needed for itching symptoms, side effect drowsiness , do not take prior to drinking, driving, operating heavy machinery. Patient questions asked and answered. ER precautions given, patient instructed to return to ER immediately for any new or worsening of symptoms. Rory Lam Dec 25, 2017 13:05
[2017-12-25] MEDS ORDERED: BACTROBAN CR1 APPLIC TOPIC (13:09)
[2017-12-25] MEDS ORDERED: BACTRIM DS TAB1 EAC1 ORAL (13:09)
[2017-12-25] MEDS ORDERED: CLEOCIN150 MG ORAL (13:09)
[2017-12-25 13:15] VITALS: BP 131/80
[2017-12-26] MEDS ORDERED: BENADRYL ALLERG25 M1 PO (17:51)
== END 2017-12-25 13:15 | disposition home or self-care (01) ==
LOC: EMR 12:50
DX: R21 Rash and other nonspecific skin eruption (principal); W57.XXXA Bitten or stung by nonvenomous insect and other nonvenomous arthropods, initial encounter; Y92.9 Unspecified place or not applicable; Z23 Encounter for immunization; I10 Essential (primary) hypertension; I48.91 Unspecified atrial fibrillation; J45.909 Unspecified asthma, uncomplicated; Z88.0 Allergy status to penicillin
CPT/HCPCS: 90471; 90715; 99283

== ENCOUNTER 2017-12-26 17:22 | Emergency (ER) | payer MEDICAID ==
[~2017-12-26] VITALS: Ht 165.1 cm; Wt 82.6 kg
[~2017-12-26 17:22] MED LIST changes: +BACTROBAN CR1 APPLIC TOPIC; +CLEOCIN150 MG ORAL
[2017-12-26 17:36] VITALS: BP 126/83
[2017-12-26] MEDS ORDERED: BENADRYL ALLERG25 M1 PO (17:51)
--- NOTE | 2017-12-26 17:51 | Emergency Room Report ---
History of Present Illness General Chief Complaint: Skin Rash/Abscess Source: Patient (Jenny Esparza) Present Illness HPI 57-year-old male presents emergency department for wound check. Patient was diagnosed with cellulitis yesterday here in the emergency department. Patient states that they did not drain anything and told him to have close follow-up within 2 days and if he cannot see his PCP then he should return to the ER. Patient denies pain at this time. He states overall he feels his symptoms have improved however the length of the lesion has increased. Patient states that originally it was a large diameter and now has shrunken in diameter, but began migrating in a linear fashion and is " longer." He describes moderate itching at onset of his symptoms, and has persisted. Patient denies fevers or chills he states he's been taking prescribed medications as directed. Patient reports continued tenderness with palpation. He denies discharge. He denies swollen tender lymph nodes. tetanus UTD. (Jenny Esparza) Allergies: Coded Allergies: PENICILLINS (Verified Adverse Reaction, Unknown, 07/23/15) Patient History Past Medical History: see triage record, HTN, AFib Past Surgical History: none Pertinent Family History: none Immunizations: UTD Reviewed Nursing Documentation: PMH: Agreed; PSxH: Agreed (Jenny Esparza) Nursing Documentation-PMH Past Medical History: No History, Except For Hx Cardiac Problems: Yes - AFIB Hx Hypertension: Yes Hx Asthma: Yes Hx Neurological Problems: No (Jenny Esparza) Review of Systems All Other Systems: negative except mentioned in HPI (Jenny Esparza) Physical Exam Vital Signs Date Time Temp Pulse Resp B/P (MAP) Pulse Ox O2 Delivery O2 Flow Rate FiO2 718 17:25 98.3 75 16 126/83 95 Room Air 98.2 Sp02 EP Interpretation: reviewed, normal General Appearance: well appearing, no apparent distress, alert, GCS 15, non- toxic Head: normocephalic, atraumatic ENT: hearing grossly normal, normal voice, other - indurated linear lesion on the right side of the posterior neck /nape of the neck. no d/c, crusting, blisters or vessicles, 3cm in size. Neck: full range of motion, no meningismus, no bony tend Respiratory: speaking full sentences Musculoskeletal: back normal, gait/station normal, normal range of motion, non- tender Neurologic: alert, oriented x3, responsive, motor strength/tone normal, sensory intact, speech normal, grossly normal Psychiatric: judgement/insight normal Skin: normal color, no rash, warm/dry, well hydrated, other - indurated linear lesion on the right side of the posterior neck /nape of the neck. no d/c, crusting,blisters or vessicles, 3cm in size. Lymphatic: no adenopathy (Jenny Esparza) Medical Decision Making PA Attestation Dr. Spear is my supervising Physician whom patient management has been discussed with. (Jenny Esparza) Diagnostic Impression: Primary Impression: Cellulitis Qualified Codes: L03.221 - Cellulitis of neck Additional Impression: Rash and other nonspecific skin eruption ER Course 57-year-old male presents emergency department for wound check. Patient was diagnosed with cellulitis yesterday here in the emergency department. Patient states that they did not drain anything and told him to have close follow-up within 2 days and if he cannot see his PCP then he should return to the ER. Patient denies pain at this time. He states overall he feels his symptoms have improved however the length of the lesion has increased. Patient states that originally it was a large diameter and now has shrunken in diameter, but began migrating in a linear fashion and is " longer." He describes moderate itching at onset of his symptoms, and has persisted. Patient denies fevers or chills he states he's been taking prescribed medications as directed. Patient reports continued tenderness with palpation. He denies discharge. He denies swollen tender lymph nodes. tetanus UTD. Ddx considered but are not limited to cellulitis, abscess, cystic acne, necrotizing fasciitis, insect bite, Lymphadenopathy just to name a few. Vital signs: are WNL, pt. is afebrile H&PE are most consistent with healing soft tissue infection, requiring continued monitoring closely. ORDERS: none required at this time, the diagnosis is clinical ED INTERVENTIONS: d/w pt. to continue previously rx'd medications and to add oral Benadryl for itching. d/w pt. med. S/E's. - Pt. to return to ED on Saturday for Re-Check, return sooner with worsening or new symptoms. DISCHARGE: At this time pt. is stable for d/c to home. Will provide printed patient care instructions, and any necessary prescriptions. Care plan and follow up instructions have been discussed with the patient prior to discharge. (Jenny Esparza) ER Course I examined this patient and agree with the treatment plan. (Stoney Spear M.D.) Last Vital Signs Date Time Temp Pulse Resp B/P (MAP) Pulse Ox O2 Delivery O2 Flow Rate FiO2 12/26/17 17:36 98.2 16 126/83 95 Room Air 98.2 12/26/17 17:25 75 (Jenny Esparza) Disposition: HOME, SELF-CARE Condition: Stable Scripts Diphenhydramine Hcl (BENADRYL ALLERGY) 25 Mg Tablet 25 MG PO Q6HR, #20 TAB Prov: Jenny Esparza 12/26/17 Patient Instructions: Wound Check Additional Instructions: Take medications as directed. Continue previously prescribed medications in addition to Benadryl. Return for wound check on Saturday (12/29/17) here in the ED. Return sooner to ED if new symptoms occur, or current symptoms become worse. - Please note that this Emergency Department Report was dictated using [employer]sports instructor technology software, occasionally this can lead to erroneous entry secondary to interpretation by the dictation equipment. Jenny Esparza Dec 26, 2017 17:51 Stoney Spear M.D. Dec 28, 2017 14:39
[2017-12-26 18:01] VITALS: BP 126/83
== END 2017-12-26 18:01 | disposition home or self-care (01) ==
LOC: EMR 18:00
DX: L03.221 Cellulitis of neck (principal); I10 Essential (primary) hypertension; I48.91 Unspecified atrial fibrillation; J45.909 Unspecified asthma, uncomplicated; Z88.0 Allergy status to penicillin
CPT/HCPCS: 99283

== ENCOUNTER → 2018-01-21 | Emergency (ER) | payer MEDICAID ==
[~2018-01-21] VITALS: Ht 165.1 cm; Wt 81.6 kg
[~2018-01-21] MED LIST changes: +ASPIRIN81 MG ORAL; +ATORVASTATIN CA20 MG ORAL; +BENADRYL ALLERG25 M1 PO; +BENADRYL25 MG ORAL; +LOSARTAN-HCTZ1 EAC1 ORAL; +PREDNISONE20 MG ORAL
[2018-01-21 02:42] VITALS: BP 117/81
--- NOTE | 2018-01-21 02:50 | Emergency Room Report ---
History of Present Illness General Chief Complaint: Skin Rash/Abscess Source: Patient Present Illness HPI Is a 57-year-old male who presents with chief complaint of Allergic reaction. Has been on and off for about a week now. Unknown etiology. Usually toward evening when he started getting itching and will show up. Better in the morning. Worse tonight because woke him up because of the itchiness. No fever chills but no nausea no vomiting. No new medication or food. Allergies: Coded Allergies: PENICILLINS (Verified Adverse Reaction, Unknown, 07/23/15) Patient History Past Medical History: see triage record, old chart reviewed Past Surgical History: other Pertinent Family History: none Social History: Denies: smoking Immunizations: other Reviewed Nursing Documentation: PMH: Agreed; PSxH: Agreed Nursing Documentation-PMH Hx Cardiac Problems: Yes - AFIB Hx Hypertension: Yes Hx Asthma: Yes Hx Neurological Problems: No Review of Systems Eye: Denies: eye pain, blurred vision ENT: Denies: ear pain, nose congestion, throat swelling Respiratory: Denies: cough, shortness of breath Cardiovascular: Denies: chest pain, palpitations Gastrointestinal: Denies: abdominal pain, diarrhea, nausea, vomiting Musculoskeletal: Denies: back pain, joint pain Skin: Reports: rash Neurological: Denies: headache, numbness Endocrine: Denies: increased thirst, increased urine Hematologic/Lymphatic: Denies: easy bruising All Other Systems: negative except mentioned in HPI Physical Exam Vital Signs Date Time Temp Pulse Resp B/P (MAP) Pulse Ox O2 Delivery O2 Flow Rate FiO2 01/21/18 02:19 97.9 80 16 117/81 97 97.9 vitals normal Sp02 EP Interpretation: reviewed, normal General Appearance: well appearing, no apparent distress, alert Head: normocephalic, atraumatic Eyes: bilateral eye PERRL, bilateral eye EOMI ENT: hearing grossly normal, normal pharynx Neck: full range of motion, supple, no meningismus Respiratory: chest non-tender, lungs clear, normal breath sounds Cardiovascular #1: regular rate, rhythm, no murmur Gastrointestinal: normal bowel sounds, non tender, no mass, no organomegaly, no bruit, non-distended Musculoskeletal: back normal, gait/station normal, normal range of motion Neurologic: oriented x3, responsive Psychiatric: mood/affect normal Skin: warm/dry, other - Scattered urticaria on his torso Medical Decision Making Diagnostic Impression: Primary Impression: Allergic reaction Qualified Codes: T78.40XA - Allergy, unspecified, initial encounter ER Course Patient presents with allergic reaction. Unknown etiology. No respiratory complaint. No wheezing. No anaphylaxis. Last Vital Signs Date Time Temp Pulse Resp B/P (MAP) Pulse Ox O2 Delivery O2 Flow Rate FiO2 01/21/18 02:42 97.9 80 16 117/81 97 97.9 Status: improved Disposition: HOME, SELF-CARE Condition: Stable Scripts Diphenhydramine Hcl* (BENADRYL*) 25 Mg Capsule 50 MG ORAL Q6H PRN for Itching, #30 CAP Prov: LEXII HUFF M.D. 01/21/18 Prednisone* (PREDNISONE*) 20 Mg Tablet 60 MG ORAL DAILY, #12 TAB Prov: LEXII HUFF M.D. 01/21/18 Additional Instructions: Follow-up with your doctor in 7 days. You may need skin testing or blood work to see what you are allergic to. Return for any respiratory problem. LEXII HUFF M.D. Jan 21, 2018 02:49
[2018-01-21 02:56] VITALS: BP 117/81
== END | disposition home or self-care (01) ==
LOC: EMR 02:57
DX: T78.40XA Allergy, unspecified, initial encounter (principal); X58.XXXA Exposure to other specified factors, initial encounter; I48.91 Unspecified atrial fibrillation; I10 Essential (primary) hypertension; J45.909 Unspecified asthma, uncomplicated; Z88.0 Allergy status to penicillin
CPT/HCPCS: 99283; J7512

== ENCOUNTER 2018-01-29 10:41 | Inpatient (IN) | payer MEDICAID ==
[~2018-01-29] VITALS: Ht 165.1 cm; Wt 129.7 kg
[~2018-01-29 10:41] MED LIST changes: -ASPIRIN81 MG ORAL; -ATORVASTATIN CA20 MG ORAL; -LOSARTAN-HCTZ1 EAC1 ORAL
[2018-01-29 11:05] VITALS: BP 99/68
[2018-01-29] MEDS ORDERED: ASPIRIN81 MG ORAL (11:27)
[2018-01-29] MEDS ORDERED: LOSARTAN-HCTZ1 EAC1 ORAL (11:27)
[2018-01-29] MEDS ORDERED: ATORVASTATIN CA20 MG ORAL (11:27)
[2018-01-29 11:29] LABS: BASOPHILS % (AUTO) 1.6 % (0.0-2.0); EOSINOPHILS % (AUTO) 0.6 % (0.0-3.0); HEMATOCRIT 53.3 % (42.0-52.0); HEMOGLOBIN 17.8 G/DL (14.2-18.0); LYMPHOCYTES % (AUTO) 39.3 % (20.0-45.0); MEAN CORPUSCULAR VOLUME 84 FL (80-99); MONOCYTES % (AUTO) 8.2 % (1.0-10.0); NEUTROPHILS % (AUTO) 50.4 % (45.0-75.0); PLATELET COUNT 228 K/UL (150-450); RED BLOOD COUNT 6.34 M/UL (4.70-6.10); RED CELL DISTRIBUTION WIDTH 11.9 % (11.6-14.8); WHITE BLOOD COUNT 13.5 K/UL (4.8-10.8)
[2018-01-29 11:37] LABS: ANION GAP 7 mmol/L (5-15); BLOOD UREA NITROGEN 20 mg/dL (7-18); CALCIUM 8.9 MG/DL (8.5-10.1); CARBON DIOXIDE 26 MMOL/L (21-32); CHLORIDE 103 MMOL/L (98-107); CREATININE 1.3 MG/DL (0.55-1.30); POTASSIUM 3.9 MMOL/L (3.5-5.1); SODIUM 136 MMOL/L (136-145)
[2018-01-29 11:38] LABS: BILIRUBIN, URINE NEGATIVE (NEGATIVE); GLUCOSE, URINE (UA) NEGATIVE (NEGATIVE); KETONES,URINE NEGATIVE (NEGATIVE); LEUKOCYTE ESTERASE ,URINE 1+ (NEGATIVE); NITRITE,URINE NEGATIVE (NEGATIVE); PH,URINE 8 (4.5-8.0); PROTEIN,URINE NEGATIVE (NEGATIVE); UROBILINOGEN,URINE 8 MG/DL (NORMAL)
[2018-01-29 11:45] LABS: APPEARANCE,URINE SLIGHTLY CLOUDY; COLOR,URINE YELLOW
--- NOTE | 2018-01-29 11:46 | Emergency Room Report ---
History of Present Illness General Chief Complaint: Dizziness Source: Patient Present Illness HPI 57-year-old male presents ED complaining of dizziness and weakness. Started 2 days ago. States he noticed blood pressure was low. History of A. fib. States he is compliant with his medications. States that for the last 2 weeks he's been having persistent diarrhea. Denies any sick contacts or recent travel. States that just prior to onset of diarrhea he had completed antibiotic course prescribed for a "bug bite". Patient denies any abdominal pain. Denies any fevers or chills. Denies nausea or vomiting. No other aggravating relieving factors. Denies any other associated symptoms Allergies: Coded Allergies: PENICILLINS (Verified Adverse Reaction, Unknown, 07/23/15) Patient History Past Medical History: HTN, AFib, asthma Past Surgical History: none Pertinent Family History: none Social History: Denies: smoking, alcohol use, drug use Immunizations: UTD Reviewed Nursing Documentation: PMH: Agreed; PSxH: Agreed Nursing Documentation-PMH Hx Cardiac Problems: Yes - AFIB Hx Hypertension: Yes Hx Asthma: Yes Hx Neurological Problems: No Review of Systems All Other Systems: negative except mentioned in HPI Physical Exam Vital Signs Date Time Temp Pulse Resp B/P (MAP) Pulse Ox O2 Delivery O2 Flow Rate FiO2 01/29/18 10:51 98.0 90 18 92/64 96 Room Air 98.1 Sp02 EP Interpretation: reviewed, normal General Appearance: no apparent distress, alert, GCS 15, non-toxic Head: normocephalic, atraumatic Eyes: bilateral eye normal inspection, bilateral eye PERRL ENT: hearing grossly normal, normal pharynx, no angioedema, normal voice Neck: full range of motion, supple/symm/no masses Respiratory: chest non-tender, lungs clear, normal breath sounds, speaking full sentences Cardiovascular #1: regular rate, rhythm, no edema Cardiovascular #2: 2+ carotid (R), 2+ carotid (L), 2+ radial (R), 2+ radial (L) , 2+ dorsalis pedis (R), 2+ dorsalis pedis (L) Gastrointestinal: normal bowel sounds, non tender, soft, non-distended, no guarding, no rebound Rectal: deferred Genitourinary: normal inspection, no CVA tenderness Musculoskeletal: back normal, gait/station normal, normal range of motion, non- tender Neurologic: alert, oriented x3, responsive, motor strength/tone normal, sensory intact, speech normal Psychiatric: judgement/insight normal, memory normal, mood/affect normal, no suicidal/homicidal ideation Reflexes: 3+ bicep (R), 3+ bicep (L), 3+ tricep (R), 3+ tricep (L), 3+ knee (R) , 3+ knee (L) Skin: normal color, no rash, warm/dry, well hydrated Lymphatic: no adenopathy Medical Decision Making Diagnostic Impression: Primary Impression: Atrial fibrillation Qualified Codes: I48.91 - Unspecified atrial fibrillation Additional Impression: Colitis ER Course Hospital Course 57-year-old male presenting to ED with generalized weakness, low BP, dizzy, diarrhea x 2 weeks Differential diagnoses include: Pneumonia, UTI, sepsis, dehydration, [place]/ unstable angina Clinical course Patient placed on stretcher. On title clerk automobile with hypotension. ekg shows afib. After initial history and physical, I ordered labs, IV fluids, EKG, chest x-ray, blood cultures, UA. Labs - electrolytes ok, no leukocytosis, troponins negative, lactate ok EKG - afib with RVR CXR - no acute process Abx given. BP improved with IVFs. likely colits presumed Cdiff. stool culture sent. Case discussed with Dr Caro and they agreed to admit patient to their service for further care and support I feel this is a highly complex case requiring extensive working including EKG/ Rhythm strip, Xray/CT/US, Blood/urine lab work, repeat exams while in ED, and administration of strong opiates/narcotics for pain control, admission to hospital or close patient follow up. Diagnosis - afib, colitis Patient admitted to telemetry in serious condition Labs Test 01/29/18 11:10 01/29/18 11:28 White Blood Count 13.5 K/UL (4.8-10.8) Red Blood Count 6.34 M/UL (4.70-6.10) Hemoglobin 17.8 G/DL (14.2-18.0) Hematocrit 53.3 % (42.0-52.0) Mean Corpuscular Volume 84 FL (80-99) Mean Corpuscular Hemoglobin 28.0 PG (27.0-31.0) Mean Corpuscular Hemoglobin Concent 33.3 G/DL (32.0-36.0) Red Cell Distribution Width 11.9 % (11.6-14.8) Platelet Count 228 K/UL (150-450) Mean Platelet Volume 7.8 FL (6.5-10.1) Neutrophils (%) (Auto) 50.4 % (45.0-75.0) Lymphocytes (%) (Auto) 39.3 % (20.0-45.0) Monocytes (%) (Auto) 8.2 % (1.0-10.0) Eosinophils (%) (Auto) 0.6 % (0.0-3.0) Basophils (%) (Auto) 1.6 % (0.0-2.0) Sodium Level 136 MMOL/L (136-145) Potassium Level 3.9 MMOL/L (3.5-5.1) Chloride Level 103 MMOL/L (98-107) Carbon Dioxide Level 26 MMOL/L (21-32) Anion Gap 7 mmol/L (5-15) Blood Urea Nitrogen 20 mg/dL (7-18) Creatinine 1.3 MG/DL (0.55-1.30) Estimat Glomerular Filtration Rate > 60 mL/min (>60) Glucose Level 110 MG/DL (74-106) Lactic Acid Level 0.80 mmol/L (0.4-2.0) Calcium Level 8.9 MG/DL (8.5-10.1) Total Bilirubin 0.6 MG/DL (0.2-1.0) Aspartate Amino Transf (AST/SGOT) 25 U/L (15-37) Alanine Aminotransferase (ALT/SGPT) 43 U/L (12-78) Alkaline Phosphatase 40 U/L (46-116) Total Creatine Kinase 58 U/L (26-308) Creatine Kinase MB 0.6 NG/ML (0.0-3.6) Creatine Kinase MB Relative Index 1.0 Troponin I 0.000 ng/mL (0.000-0.056) Total Protein 6.6 G/DL (6.4-8.2) Albumin 3.1 G/DL (3.4-5.0) Globulin 3.5 g/dL Albumin/Globulin Ratio 0.9 (1.0-2.7) Urine Color Yellow Urine Appearance Slightly cloudy Urine pH 8 (4.5-8.0) Urine Specific [place] 1.010 (1.005-1.035) Urine Protein Negative (NEGATIVE) Urine Glucose (UA) Negative (NEGATIVE) Urine Ketones Negative (NEGATIVE) Urine Occult Blood Negative (NEGATIVE) Urine Nitrite Negative (NEGATIVE) Urine Bilirubin Negative (NEGATIVE) Urine Urobilinogen 8 MG/DL (NORMAL) Urine Leukocyte Esterase 1+ (NEGATIVE) Urine RBC 0-2 /HPF (0 - 0) Urine WBC 0-2 /HPF (0 - 0) Urine Squamous Epithelial Cells Occasional /LPF Urine Bacteria Occasional /HPF (NONE) EKG Diagnostic Results Rate: tachycardiac Rhythm: other - afib ST Segments: no acute changes ASA given to the pt in ED: No Rhythm Strip Diag. Results EP Interpretation: yes Rhythm: no PVC's, no ectopy Chest X-Ray Diagnostic Results Chest X-Ray Diagnostic Results : Chest X-Ray Ordered: Yes # of Views/Limited/Complete: 1 View Indication: Other - dizzy EP Interpretation: Yes Interpretation: no consolidation, no effusion, no pneumothorax, no acute cardiopulmonary disease Impression: No acute disease Electronically Signed by: Electronically signed by Israel Crews MD Last Vital Signs Date Time Temp Pulse Resp B/P (MAP) Pulse Ox O2 Delivery O2 Flow Rate FiO2 01/29/18 11:05 98.1 105 26 99/68 98 Room Air 98.1 Status: improved Disposition: ADMITTED INPATIENT Condition: Serious Referrals: [facility],REFERRING (PCP) Israel Crews MD Jan 29, 2018 11:46
[2018-01-29 11:51] VITALS: BP 97/65
[2018-01-29 11:53] LABS: ALANINE AMINOTRANSFERASE 43 U/L (12-78); ALBUMIN 3.1 G/DL (3.4-5.0); ALBUMIN/GLOBULIN RATIO 0.9 (1.0-2.7); ALKALINE PHOSPHATASE 40 U/L (46-116); ASPARTATE AMINO TRANSFERASE 25 U/L (15-37); BILIRUBIN,TOTAL 0.6 MG/DL (0.2-1.0); CKMB 0.6 NG/ML (0.0-3.6); CREATINE KINASE 58 U/L (26-308)
--- NOTE | 2018-01-29 12:26 | Diagnostic Imaging Report ---
Indication: Dyspnea Technique: XRAY Chest 1v Comparison: 03/18/2017 Findings: Heart size and mediastinal contours are stable allowing for differences in patient positioning and technique. There is no focal consolidation, pneumothorax or pleural effusion. Osseous structures demonstrate no acute abnormality. Impression: No radiographic evidence of acute cardiopulmonary disease.
[2018-01-29 13:00] VITALS: BP 96/59
[2018-01-29 14:25] VITALS: BP 98/62
[2018-01-29] MEDS ORDERED: Enalaprilat 2.5mg/2ml Inj IV PRN (14:30)
[2018-01-29] MEDS ORDERED: dilTIAZem HCl 25mg/5ml Inj IV PRN (14:30)
[2018-01-29] MEDS ORDERED: Nitroglycerin Subl 0.4mg tab SL PRN (14:30)
[2018-01-29] MEDS ORDERED: Albuterol/Ipratropium 3ml neb HHN PRN (14:30)
[2018-01-29] MEDS ORDERED: NTG SL (14:30)
--- NOTE | 2018-01-29 16:01 | GI Initial Consult Note ---
History of Present Illness General Date patient seen: Jan 29, 2018 Time patient seen: 15:52 Reason for Hospitalization: Dizziness Referring physician: SARAH NAJERA Reason for Consultation: SEVERE DIARRHEA Present Illness HPI 57-year-old male presents ED complaining of dizziness and weakness. Started 2 days ago. States he noticed blood pressure was low. History of A. fib. States he is compliant with his medications. States that for the last 2 weeks he's been having persistent diarrhea. Denies any sick contacts or recent travel. States that just prior to onset of diarrhea he had completed antibiotic course prescribed for a "bug bite". Patient denies any abdominal pain. Denies any fevers or chills. Denies nausea or vomiting. No other aggravating relieving factors. Denies any other associated symptoms GI consulted for severe diarrhea. Pt seen, awake A&Ox4 NAD with no active s/sx of N/V. Pt states the onset of his diarrhea began approximately 1 month ago after he was admitted to the hospital and give antibiotics. The patient presently continues to have diarrhea today. Denies any melena or hematochezia. No abdominal pain. Denies N/V. Denies any recent travels. Denies any abnormal weight loss. Denies any changes in dietary habits. His last colonoscopy was 1 year ago, in which there were unremarkable findings. Presents today with leukocytosis. No anemia. Home Meds Reported Medications Losartan/Hydrochlorothiazide (LOSARTAN-HCTZ 100-25 MG TAB) 1 Each Tablet, 1 TAB ORAL DAILY, TAB 01/29/18 Atorvastatin Calcium* (ATORVASTATIN CALCIUM*) 20 Mg Tablet, MG ORAL BEDTIME, TAB 01/29/18 Aspirin* (ASPIRIN*) 81 Mg Tab.chew, 81 MG ORAL DAILY, TAB 01/29/18 Discontinued Reported Medications Lisinopril (LISINOPRIL*) 20 Mg Tablet, 20 MG ORAL DAILY, TAB 03/19/17 Discontinued Scripts Diphenhydramine Hcl* (BENADRYL*) 25 Mg Capsule, 50 MG ORAL Q6H PRN for Itching, #30 CAP Prov:LEXII HUFF M.D. 01/21/18 Prednisone* (PREDNISONE*) 20 Mg Tablet, 60 MG ORAL DAILY, #12 TAB Prov:LEXII HUFF M.D. 01/21/18 Hydrochlorothiazide* (HYDROCHLOROTHIAZIDE*) 25 Mg Tablet, 25 MG ORAL DAILY, #30 TAB Prov:NATTYEARLPHYLICIASIVA Guzman 12/08/16 Med list reviewed/reconciled: Yes Allergies: Coded Allergies: PENICILLINS (Verified Adverse Reaction, Unknown, 07/23/15) Patient History History Provided By: Patient, Medical Record PMH Narrative Past Medical History: HTN, AFib, asthma Past Surgical History: none Pertinent Family History: none Social History: Denies: smoking, alcohol use, drug use Immunizations: UTD Reviewed Nursing Documentation: PMH: Agreed; PSxH: Agreed Nursing Documentation-PMH Hx Cardiac Problems: Yes - AFIB Hx Hypertension: Yes Hx Asthma: Yes Hx Neurological Problems: No Social History: Reports: smoking - life long smoker Review of Systems All Other Systems: negative except mentioned in HPI Physical Exam Vital Signs Date Time Temp Pulse Resp B/P (MAP) Pulse Ox O2 Delivery O2 Flow Rate FiO2 01/29/18 10:51 98.0 90 18 92/64 96 Room Air 98.1 Sp02 EP Interpretation: reviewed, normal Labs Laboratory Tests Test 01/29/18 11:10 01/29/18 11:28 White Blood Count 13.5 K/UL (4.8-10.8) H Red Blood Count 6.34 M/UL (4.70-6.10) H Hemoglobin 17.8 G/DL (14.2-18.0) Hematocrit 53.3 % (42.0-52.0) H Mean Corpuscular Volume 84 FL (80-99) Mean Corpuscular Hemoglobin 28.0 PG (27.0-31.0) Mean Corpuscular Hemoglobin Concent 33.3 G/DL (32.0-36.0) Red Cell Distribution Width 11.9 % (11.6-14.8) Platelet Count 228 K/UL (150-450) Mean Platelet Volume 7.8 FL (6.5-10.1) Neutrophils (%) (Auto) 50.4 % (45.0-75.0) Lymphocytes (%) (Auto) 39.3 % (20.0-45.0) Monocytes (%) (Auto) 8.2 % (1.0-10.0) Eosinophils (%) (Auto) 0.6 % (0.0-3.0) Basophils (%) (Auto) 1.6 % (0.0-2.0) Sodium Level 136 MMOL/L (136-145) Potassium Level 3.9 MMOL/L (3.5-5.1) Chloride Level 103 MMOL/L (98-107) Carbon Dioxide Level 26 MMOL/L (21-32) Anion Gap 7 mmol/L (5-15) Blood Urea Nitrogen 20 mg/dL (7-18) H Creatinine 1.3 MG/DL (0.55-1.30) Estimat Glomerular Filtration Rate > 60 mL/min (>60) Glucose Level 110 MG/DL (74-106) H Lactic Acid Level 0.80 mmol/L (0.4-2.0) Calcium Level 8.9 MG/DL (8.5-10.1) Total Bilirubin 0.6 MG/DL (0.2-1.0) Aspartate Amino Transf (AST/SGOT) 25 U/L (15-37) Alanine Aminotransferase (ALT/SGPT) 43 U/L (12-78) Alkaline Phosphatase 40 U/L (46-116) L Total Creatine Kinase 58 U/L (26-308) Creatine Kinase MB 0.6 NG/ML (0.0-3.6) Creatine Kinase MB Relative Index 1.0 Troponin I 0.000 ng/mL (0.000-0.056) Total Protein 6.6 G/DL (6.4-8.2) Albumin 3.1 G/DL (3.4-5.0) L Globulin 3.5 g/dL Albumin/Globulin Ratio 0.9 (1.0-2.7) L Urine Color Yellow Urine Appearance Slightly cloudy Urine pH 8 (4.5-8.0) Urine Specific [place] 1.010 (1.005-1.035) Urine Protein Negative (NEGATIVE) Urine Glucose (UA) Negative (NEGATIVE) Urine Ketones Negative (NEGATIVE) Urine Occult Blood Negative (NEGATIVE) Urine Nitrite Negative (NEGATIVE) Urine Bilirubin Negative (NEGATIVE) Urine Urobilinogen 8 MG/DL (NORMAL) H Urine Leukocyte Esterase 1+ (NEGATIVE) H Urine RBC 0-2 /HPF (0 - 0) H Urine WBC 0-2 /HPF (0 - 0) Urine Squamous Epithelial Cells Occasional /LPF Urine Bacteria Occasional /HPF (NONE) General Appearance: well appearing, no apparent distress, alert Head: normocephalic EENT: PERRL/EOMI, normal ENT inspection Neck: supple Respiratory: normal breath sounds, no respiratory distress Cardiovascular: normal rate Gastrointestinal: normal inspection, non tender, soft, normal bowel sounds, non -distended Rectal: deferred Genitourinary: deferred Musculoskeletal: normal inspection, back normal Neurologic: normal inspection, alert, oriented x3, responsive Psychiatric: normal inspection, judgement/insight normal, memory normal Skin: normal inspection, normal color, no rash, warm/dry, palpation normal, well hydrated Lymphatic: normal inspection, no adenopathy Current Medications Current Medications Medications (Trade) Dose Ordered Sig/Eduardo Route PRN Reason Start Time Stop Time Status Last Admin Dose Admin Acetaminophen (Tylenol) 650 mg Q4H PRN ORAL T>100.5 01/29/18 14:30 02/28/18 14:29 Albuterol/ Ipratropium (Albuterol/ Ipratropium) 3 ml Q4H PRN HHN Shortness of Breath 01/29/18 14:30 02/03/18 14:29 Aspirin (ASA) 162 mg DAILY ORAL 01/30/18 09:00 03/01/18 08:59 Ciprofloxacin 200 ml @ 200 mls/hr ONCE ONCE IV 01/29/18 16:30 01/29/18 17:29 Diltiazem HCl (Cardizem) 10 mg Q1H PRN IV HR > 120 BPM 01/29/18 14:30 02/28/18 14:29 Enalaprilat (Vasotec) 2.5 mg Q6H PRN IV SBP > 160mmHg 01/29/18 14:30 02/28/18 14:29 Heparin Sodium (Porcine) (Heparin 5000 units/ml) 5,000 units EVERY 12 HOURS SUBQ 01/29/18 21:00 02/28/18 20:59 Nitroglycerin (Ntg) 0.4 mg Q5MIN X 3 DOSES PRN SL Prn Chest Pain 01/29/18 14:30 02/28/18 14:29 Ondansetron HCl (Zofran) 4 mg Q6H PRN IVP Nausea & Vomiting 01/29/18 14:30 02/28/18 14:29 Temazepam (Restoril) 15 mg HSPRN PRN ORAL Insomnia 01/29/18 21:00 02/05/18 20:59 GI: Plan Problems: (1) Severe diarrhea (2) Dehydration (3) Colitis Plan Hx of colonoscopy last year >> unremarkable per patient will consider colonoscopy if work up is negative send for cdiff, stool studies and O&P PO/IV hydration electrolyte correction H2B ok to adv to regular diet abx fu labs Discussed with Dr. Jarquin. Thank you for this patient referral, we will follow. The patient was seen and examined at bedside and all new and available data was reviewed in the patients chart. I agree with the above findings, impression and plan. (Patient seen earlier today. Signature stamp does not reflect patient encounter time.). - MD Sunitha Emerson,[facility] Jan 29, 2018 16:01
[2018-01-29 20:00] VITALS: BP 117/61
[2018-01-29] MEDS: Heparin 5000 units/ml inj SUBQ SCH (21:22)
[2018-01-30] VITALS: BP 98/67
[2018-01-30 04:00] VITALS: BP 115/58
--- NOTE | 2018-01-30 07:46 | Consultation ---
History of Present Illness General Date patient seen: Jan 30, 2018 Chief Complaint: Dizziness Referring physician: SARAH NAJERA Reason for Consultation: SEVERE DIARRHEA Present Illness HPI Mr. Reyes is a 57 yo male with PMHx of asthma, A. fib and HTN who presented to the ED yesterday with dizziness and weakness. He reports that he has had persistent diarrhea after taking and antibiotic. The diarrhea is slowly improving now. He says that he came the ED for hypotension rather then the diarrhea. The diarrhea started started on day 3 of a three day course of Abx for a bug bite. The diarrhea is mixed watery stool. He has had intermittent diarrhea in the past but only about two days worth. this is the first time that is has last over a week. He has no recent travel, no sick contacts, He does not go hiking or is out in nature. He says there is intermittent blood in his stool that has come and gone for years. Last colonoscopy was in Mar 2017 and normal per patient. In the ED he was found to have a leukocytosis of 13.5 but was afebrile with negative UA and CXR. GI was consulted and stool studies were sent. PMHx/PSHx #HTN #A.fib #Asthma SocHx Denies E/T/D FamHx Reviewed not contributory Allergies: Coded Allergies: PENICILLINS (Verified Adverse Reaction, Unknown, 07/23/15) Medication History Scheduled Aspirin* (Aspirin*), 81 MG ORAL DAILY, (Reported) Atorvastatin Calcium* (Atorvastatin Calcium*), MG ORAL BEDTIME, (Reported) Losartan/Hydrochlorothiazide (Losartan-Hctz 100-25 Mg Tab), 1 TAB ORAL DAILY, ( Reported) Discontinued Medications Diphenhydramine Hcl* (Benadryl*), 50 MG ORAL Q6H PRN for Itching Discontinued Reason: Pt stopped taking med Hydrochlorothiazide* (Hydrochlorothiazide*), 25 MG ORAL DAILY Discontinued Reason: Pt stopped taking med Lisinopril (Lisinopril*), 20 MG ORAL DAILY, (Reported) Discontinued Reason: Pt stopped taking med Prednisone* (Prednisone*), 60 MG ORAL DAILY Discontinued Reason: Pt stopped taking med Patient History Healthcare decision maker Resuscitation status Full Code Advanced Directive on File Review of Systems All Other Systems: negative except mentioned in HPI Physical Exam Last 24 Hour Vital Signs Date Time Temp Pulse Resp B/P (MAP) Pulse Ox O2 Delivery O2 Flow Rate FiO2 01/30/18 04:00 97.6 81 18 115/58 (77) 96 97.6 01/30/18 04:00 91 01/30/18 00:00 97.9 99 18 98/67 (77) 97 97.9 01/30/18 00:00 86 01/29/18 21:00 Room Air 01/29/18 20:00 80 01/29/18 20:00 98.3 96 18 117/61 (79) 96 98.3 01/29/18 16:07 Room Air 01/29/18 16:00 90 01/29/18 15:05 98.1 83 20 98/62 100 Room Air 98.1 01/29/18 14:25 98.1 83 20 98/62 100 Room Air 98.1 01/29/18 13:00 98.1 91 28 96/59 97 Room Air 98.1 01/29/18 11:51 98.1 93 20 97/65 100 Room Air 98.1 01/29/18 11:05 98.1 105 26 99/68 98 Room Air 98.1 01/29/18 10:51 98.0 90 18 92/64 96 Room Air 98.1 Intake and Output 01/29/18 01/30/18 19:00 07:00 Intake Total 2340 ml 450 ml Balance 2340 ml 450 ml Intake Oral 240 ml 450 ml IV Total 2100 ml # Voids 3 Laboratory Tests Test 01/29/18 11:10 01/29/18 11:28 01/29/18 16:55 White Blood Count 13.5 K/UL (4.8-10.8) H Red Blood Count 6.34 M/UL (4.70-6.10) H Hemoglobin 17.8 G/DL (14.2-18.0) Hematocrit 53.3 % (42.0-52.0) H Mean Corpuscular Volume 84 FL (80-99) Mean Corpuscular Hemoglobin 28.0 PG (27.0-31.0) Mean Corpuscular Hemoglobin Concent 33.3 G/DL (32.0-36.0) Red Cell Distribution Width 11.9 % (11.6-14.8) Platelet Count 228 K/UL (150-450) Mean Platelet Volume 7.8 FL (6.5-10.1) Neutrophils (%) (Auto) 50.4 % (45.0-75.0) Lymphocytes (%) (Auto) 39.3 % (20.0-45.0) Monocytes (%) (Auto) 8.2 % (1.0-10.0) Eosinophils (%) (Auto) 0.6 % (0.0-3.0) Basophils (%) (Auto) 1.6 % (0.0-2.0) Sodium Level 136 MMOL/L (136-145) Potassium Level 3.9 MMOL/L (3.5-5.1) Chloride Level 103 MMOL/L (98-107) Carbon Dioxide Level 26 MMOL/L (21-32) Anion Gap 7 mmol/L (5-15) Blood Urea Nitrogen 20 mg/dL (7-18) H Creatinine 1.3 MG/DL (0.55-1.30) Estimat Glomerular Filtration Rate > 60 mL/min (>60) Glucose Level 110 MG/DL (74-106) H Lactic Acid Level 0.80 mmol/L (0.4-2.0) Calcium Level 8.9 MG/DL (8.5-10.1) Total Bilirubin 0.6 MG/DL (0.2-1.0) Aspartate Amino Transf (AST/SGOT) 25 U/L (15-37) Alanine Aminotransferase (ALT/SGPT) 43 U/L (12-78) Alkaline Phosphatase 40 U/L (46-116) L Total Creatine Kinase 58 U/L (26-308) Creatine Kinase MB 0.6 NG/ML (0.0-3.6) Creatine Kinase MB Relative Index 1.0 Troponin I 0.000 ng/mL (0.000-0.056) 0.000 ng/mL (0.000-0.056) Total Protein 6.6 G/DL (6.4-8.2) Albumin 3.1 G/DL (3.4-5.0) L Globulin 3.5 g/dL Albumin/Globulin Ratio 0.9 (1.0-2.7) L Urine Color Yellow Urine Appearance Slightly cloudy Urine pH 8 (4.5-8.0) Urine Specific [place] 1.010 (1.005-1.035) Urine Protein Negative (NEGATIVE) Urine Glucose (UA) Negative (NEGATIVE) Urine Ketones Negative (NEGATIVE) Urine Occult Blood Negative (NEGATIVE) Urine Nitrite Negative (NEGATIVE) Urine Bilirubin Negative (NEGATIVE) Urine Urobilinogen 8 MG/DL (NORMAL) H Urine Leukocyte Esterase 1+ (NEGATIVE) H Urine RBC 0-2 /HPF (0 - 0) H Urine WBC 0-2 /HPF (0 - 0) Urine Squamous Epithelial Cells Occasional /LPF Urine Bacteria Occasional /HPF (NONE) Height (Feet): 5 Height (Inches): 5.00 Weight (Pounds): 286 Medications Current Medications Medications (Trade) Dose Ordered Sig/Eduardo Route PRN Reason Start Time Stop Time Status Last Admin Dose Admin Acetaminophen (Tylenol) 650 mg Q4H PRN ORAL T>100.5 01/29/18 14:30 02/28/18 14:29 Albuterol/ Ipratropium (Albuterol/ Ipratropium) 3 ml Q4H PRN HHN Shortness of Breath 01/29/18 14:30 02/03/18 14:29 Aspirin (ASA) 162 mg DAILY ORAL 01/30/18 09:00 03/01/18 08:59 Diltiazem HCl (Cardizem) 10 mg Q1H PRN IV HR > 120 BPM 01/29/18 14:30 02/28/18 14:29 Enalaprilat (Vasotec) 2.5 mg Q6H PRN IV SBP > 160mmHg 01/29/18 14:30 02/28/18 14:29 Heparin Sodium (Porcine) (Heparin 5000 units/ml) 5,000 units EVERY 12 HOURS SUBQ 01/29/18 21:00 02/28/18 20:59 01/29/18 21:22 Nitroglycerin (Ntg) 0.4 mg Q5MIN X 3 DOSES PRN SL Prn Chest Pain 01/29/18 14:30 02/28/18 14:29 Ondansetron HCl (Zofran) 4 mg Q6H PRN IVP Nausea & Vomiting 01/29/18 14:30 02/28/18 14:29 Temazepam (Restoril) 15 mg HSPRN PRN ORAL Insomnia 01/29/18 21:00 02/05/18 20:59 Objective Narrative Gen: NAD, well appearing, alert HEENT: NCAT, MMM, EOMI, PERRL, No Oral lesion, no scleral icterus NECK: full range of motion, supple, no meningismus, No LAD, No JVD LUNGS: CTAB, No W/C, No Accessory muscle use CARDS: RRR, S1, S2, No M/R/G, ABD: Soft, NT, ND, No R/G, + BS, No HSM, No Masses Ext: C/C/E, Pulses 2+ B/L (DP, Rad): : Deferred NEURO: A/O x 4, Strength and Sensation Grossly intact PSYCH: mood/affect normal SKIN: warm/dry, No rashes Assessment/Plan Assessment/Plan Mr. Reyes is a 57 yo male with PMHx of asthma, A. fib and HTN who presented to the ED yesterday with diarrhea. # Diarrhea Unclear etiology - May not be infectious but would r/o C. diff and f /u stool studies. - WBCs 13.5 on admission. Afebrile - Stool Cx, O and P, and C. diff pending #HTN #A.fib #Asthma PLAN - f/u stool studies - Hold abx pending C. diff - Consider GI consult - Supportive care Stoney Tanner M.D. Jan 30, 2018 07:46
[2018-01-30 07:47] LABS: BASOPHILS % (AUTO) 1.4 % (0.0-2.0); EOSINOPHILS % (AUTO) 1.2 % (0.0-3.0); HEMATOCRIT 50.1 % (42.0-52.0); HEMOGLOBIN 16.6 G/DL (14.2-18.0); LYMPHOCYTES % (AUTO) 29.9 % (20.0-45.0); MEAN CORPUSCULAR VOLUME 84 FL (80-99); MONOCYTES % (AUTO) 8.9 % (1.0-10.0); NEUTROPHILS % (AUTO) 58.5 % (45.0-75.0); PLATELET COUNT 184 K/UL (150-450); RED BLOOD COUNT 5.95 M/UL (4.70-6.10); WHITE BLOOD COUNT 11.4 K/UL (4.8-10.8)
[2018-01-30 08:00] VITALS: BP 107/70
[2018-01-30 08:06] LABS: ANION GAP 7 mmol/L (5-15); BLOOD UREA NITROGEN 17 mg/dL (7-18); CALCIUM 9.2 MG/DL (8.5-10.1); CARBON DIOXIDE 27 MMOL/L (21-32); CHLORIDE 104 MMOL/L (98-107); CREATININE 1.1 MG/DL (0.55-1.30); POTASSIUM 4.2 MMOL/L (3.5-5.1); SODIUM 138 MMOL/L (136-145)
[2018-01-30] MEDS: Aspirin Baby 81mg ORAL SCH (08:07)
[2018-01-30] MEDS: Heparin 5000 units/ml inj SUBQ SCH ×2 (08:11→20:59)
[2018-01-30 08:31] LABS: CHOLESTEROL 175 MG/DL (< 200); HDL CHOLESTEROL 67 MG/DL (40-60); TRIGLYCERIDES 74 MG/DL (30-150)
--- NOTE | 2018-01-30 10:19 | General Progress Note ---
Assessment/Plan Problem List: (1) Severe diarrhea ICD Codes: K52.9 - Noninfective gastroenteritis and colitis, unspecified SNOMED: 609817081 (2) Dehydration ICD Codes: E86.0 - Dehydration SNOMED: 89972645 (3) HTN (hypertension) ICD Codes: I10 - Essential (primary) hypertension SNOMED: 17958669 Assessment/Plan improved WBC on abx fu stool studies Subjective ROS Limited/Unobtainable: Yes Allergies: Coded Allergies: PENICILLINS (Verified Adverse Reaction, Unknown, 07/23/15) Subjective loose stools Objective Last 24 Hour Vital Signs Date Time Temp Pulse Resp B/P (MAP) Pulse Ox O2 Delivery O2 Flow Rate FiO2 01/30/18 09:00 Room Air 01/30/18 08:00 98.5 96 21 107/70 (82) 96 98.5 01/30/18 08:00 88 01/30/18 04:00 97.6 81 18 115/58 (77) 96 97.6 01/30/18 04:00 91 01/30/18 00:00 97.9 99 18 98/67 (77) 97 97.9 01/30/18 00:00 86 01/29/18 21:00 Room Air 01/29/18 20:00 80 01/29/18 20:00 98.3 96 18 117/61 (79) 96 98.3 01/29/18 16:07 Room Air 01/29/18 16:00 90 01/29/18 15:05 98.1 83 20 98/62 100 Room Air 98.1 01/29/18 14:25 98.1 83 20 98/62 100 Room Air 98.1 01/29/18 13:00 98.1 91 28 96/59 97 Room Air 98.1 01/29/18 11:51 98.1 93 20 97/65 100 Room Air 98.1 01/29/18 11:05 98.1 105 26 99/68 98 Room Air 98.1 01/29/18 10:51 98.0 90 18 92/64 96 Room Air 98.1 Intake and Output 01/29/18 01/30/18 19:00 07:00 Intake Total 2340 ml 450 ml Balance 2340 ml 450 ml Intake Oral 240 ml 450 ml IV Total 2100 ml # Voids 3 Laboratory Tests 01/29/18 11:10: White Blood Count 13.5H, Red Blood Count 6.34H, Hemoglobin 17.8, Hematocrit 53.3H, Mean Corpuscular Volume 84, Mean Corpuscular Hemoglobin 28.0, Mean Corpuscular Hemoglobin Concent 33.3, Red Cell Distribution Width 11.9, Platelet Count 228, Mean Platelet Volume 7.8, Neutrophils (%) (Auto) 50.4, Lymphocytes (% ) (Auto) 39.3, Monocytes (%) (Auto) 8.2, Eosinophils (%) (Auto) 0.6, Basophils ( %) (Auto) 1.6, Sodium Level 136, Potassium Level 3.9, Chloride Level 103, Carbon Dioxide Level 26, Anion Gap 7, Blood Urea Nitrogen 20H, Creatinine 1.3, Estimat Glomerular Filtration Rate > 60, Glucose Level 110H, Lactic Acid Level 0.80, Calcium Level 8.9, Total Bilirubin 0.6, Aspartate Amino Transf (AST/SGOT) 25, Alanine Aminotransferase (ALT/SGPT) 43, Alkaline Phosphatase 40L, Total Creatine Kinase 58, Creatine Kinase MB 0.6, Creatine Kinase MB Relative Index 1.0, Troponin I 0.000, Total Protein 6.6, Albumin 3.1L, Globulin 3.5, Albumin/ Globulin Ratio 0.9L 01/29/18 11:28: Urine Color Yellow, Urine Appearance Slightly cloudy, Urine pH 8, Urine Specific [place] 1.010, Urine Protein Negative, Urine Glucose (UA) Negative, Urine Ketones Negative, Urine Occult Blood Negative, Urine Nitrite Negative, Urine Bilirubin Negative, Urine Urobilinogen 8H, Urine Leukocyte Esterase 1+H, Urine RBC 0-2H, Urine WBC 0-2, Urine Squamous Epithelial Cells Occasional, Urine Bacteria Occasional 01/29/18 16:55: Troponin I 0.000 01/30/18 07:10: White Blood Count 11.4H, Red Blood Count 5.95, Hemoglobin 16.6, Hematocrit 50.1 , Mean Corpuscular Volume 84, Mean Corpuscular Hemoglobin 28.0, Mean Corpuscular Hemoglobin Concent 33.2, Red Cell Distribution Width 12.0, Platelet Count 184, Mean Platelet Volume 8.5, Neutrophils (%) (Auto) 58.5, Lymphocytes (% ) (Auto) 29.9, Monocytes (%) (Auto) 8.9, Eosinophils (%) (Auto) 1.2, Basophils ( %) (Auto) 1.4, Sodium Level 138, Potassium Level 4.2, Chloride Level 104, Carbon Dioxide Level 27, Anion Gap 7, Blood Urea Nitrogen 17, Creatinine 1.1, Estimat Glomerular Filtration Rate > 60, Glucose Level 110H, Calcium Level 9.2, Troponin I 0.017, Prothrombin Time 10.8, Prothromb Time International Ratio 1.0 , Activated Partial Thromboplast Time 28, Phosphorus Level 3.0, Magnesium Level 1.7L, C-Reactive Protein, Quantitative < 0.4, Triglycerides Level 74, Cholesterol Level 175, LDL Cholesterol 108H, HDL Cholesterol 67H, Cholesterol/ HDL Ratio 2.6L, Thyroid Stimulating Hormone (TSH) 1.189 Height (Feet): 5 Height (Inches): 5.00 Weight (Pounds): 286 General Appearance: alert EENT: normal ENT inspection Neck: supple Cardiovascular: normal rate Respiratory/Chest: decreased breath sounds Abdomen: normal bowel sounds, non tender, soft Extremities: non-tender Wlifrido Jarquin MD Jan 30, 2018 10:19
--- NOTE | 2018-01-30 11:21 | Consultation ---
History of Present Illness General Date patient seen: Jan 30, 2018 Time patient seen: 11:16 Chief Complaint: Dizziness Referring physician: SARAH NAJERA Reason for Consultation: SEVERE DIARRHEA Present Illness HPI Patient presents wtih dizziness/weakness for a few days, he finished abx for a bug bite and has diarrhea and is dehydrated. No fever, WBC elevated, no sick contacts, no travel, no SOB/chest pain. CXR clear, troponin negative Echo with normal LV function but moderate AR. He has a hx of HTN, DM, AFIB, asthma. Allergies: Coded Allergies: PENICILLINS (Verified Adverse Reaction, Unknown, 07/23/15) Medication History Scheduled Aspirin* (Aspirin*), 81 MG ORAL DAILY, (Reported) Atorvastatin Calcium* (Atorvastatin Calcium*), MG ORAL BEDTIME, (Reported) Losartan/Hydrochlorothiazide (Losartan-Hctz 100-25 Mg Tab), 1 TAB ORAL DAILY, ( Reported) Discontinued Medications Diphenhydramine Hcl* (Benadryl*), 50 MG ORAL Q6H PRN for Itching Discontinued Reason: Pt stopped taking med Hydrochlorothiazide* (Hydrochlorothiazide*), 25 MG ORAL DAILY Discontinued Reason: Pt stopped taking med Lisinopril (Lisinopril*), 20 MG ORAL DAILY, (Reported) Discontinued Reason: Pt stopped taking med Prednisone* (Prednisone*), 60 MG ORAL DAILY Discontinued Reason: Pt stopped taking med Patient History Healthcare decision maker Resuscitation status Full Code Advanced Directive on File Review of Systems Constitutional: Reports: no symptoms Eye: Reports: no symptoms ENT: Reports: no symptoms Respiratory: Reports: no symptoms Cardiovascular: Reports: no symptoms Gastrointestinal: Reports: diarrhea Genitourinary: Reports: no symptoms Musculoskeletal: Reports: no symptoms Skin: Reports: no symptoms Psychiatric: Reports: no symptoms Neurological: Reports: no symptoms Endocrine: Reports: no symptoms Hematologic/Lymphatic: Reports: no symptoms Physical Exam General Appearance: no apparent distress, alert Lines, tubes and drains: peripheral HEENT: normocephalic, atraumatic Neck: non-tender, normal alignment, supple, normal inspection Respiratory/Chest: chest wall non-tender, lungs clear, normal breath sounds Cardiovascular/Chest: normal peripheral pulses, no JVD, diastolic murmur Abdomen: normal bowel sounds, non tender Extremities: normal range of motion Skin Exam: normal pigmentation 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, no motor/sensory deficits Last 24 Hour Vital Signs Date Time Temp Pulse Resp B/P (MAP) Pulse Ox O2 Delivery O2 Flow Rate FiO2 01/30/18 09:00 Room Air 01/30/18 08:00 98.5 96 21 107/70 (82) 96 98.5 01/30/18 08:00 88 01/30/18 04:00 97.6 81 18 115/58 (77) 96 97.6 01/30/18 04:00 91 01/30/18 00:00 97.9 99 18 98/67 (77) 97 97.9 01/30/18 00:00 86 01/29/18 21:00 Room Air 01/29/18 20:00 80 01/29/18 20:00 98.3 96 18 117/61 (79) 96 98.3 01/29/18 16:07 Room Air 01/29/18 16:00 90 01/29/18 15:05 98.1 83 20 98/62 100 Room Air 98.1 01/29/18 14:25 98.1 83 20 98/62 100 Room Air 98.1 01/29/18 13:00 98.1 91 28 96/59 97 Room Air 98.1 01/29/18 11:51 98.1 93 20 97/65 100 Room Air 98.1 Intake and Output 01/29/18 01/30/18 19:00 07:00 Intake Total 2340 ml 450 ml Balance 2340 ml 450 ml Intake Oral 240 ml 450 ml IV Total 2100 ml # Voids 3 Laboratory Tests Test 01/29/18 11:28 01/29/18 16:55 01/30/18 07:10 Urine Color Yellow Urine Appearance Slightly cloudy Urine pH 8 (4.5-8.0) Urine Specific [place] 1.010 (1.005-1.035) Urine Protein Negative (NEGATIVE) Urine Glucose (UA) Negative (NEGATIVE) Urine Ketones Negative (NEGATIVE) Urine Occult Blood Negative (NEGATIVE) Urine Nitrite Negative (NEGATIVE) Urine Bilirubin Negative (NEGATIVE) Urine Urobilinogen 8 MG/DL (NORMAL) H Urine Leukocyte Esterase 1+ (NEGATIVE) H Urine RBC 0-2 /HPF (0 - 0) H Urine WBC 0-2 /HPF (0 - 0) Urine Squamous Epithelial Cells Occasional /LPF Urine Bacteria Occasional /HPF (NONE) Troponin I 0.000 ng/mL (0.000-0.056) 0.017 ng/mL (0.000-0.056) White Blood Count 11.4 K/UL (4.8-10.8) H Red Blood Count 5.95 M/UL (4.70-6.10) Hemoglobin 16.6 G/DL (14.2-18.0) Hematocrit 50.1 % (42.0-52.0) Mean Corpuscular Volume 84 FL (80-99) Mean Corpuscular Hemoglobin 28.0 PG (27.0-31.0) Mean Corpuscular Hemoglobin Concent 33.2 G/DL (32.0-36.0) Red Cell Distribution Width 12.0 % (11.6-14.8) Platelet Count 184 K/UL (150-450) Mean Platelet Volume 8.5 FL (6.5-10.1) Neutrophils (%) (Auto) 58.5 % (45.0-75.0) Lymphocytes (%) (Auto) 29.9 % (20.0-45.0) Monocytes (%) (Auto) 8.9 % (1.0-10.0) Eosinophils (%) (Auto) 1.2 % (0.0-3.0) Basophils (%) (Auto) 1.4 % (0.0-2.0) Prothrombin Time 10.8 SEC (9.30-11.50) Prothromb Time International Ratio 1.0 (0.9-1.1) Activated Partial Thromboplast Time 28 SEC (23-33) Sodium Level 138 MMOL/L (136-145) Potassium Level 4.2 MMOL/L (3.5-5.1) Chloride Level 104 MMOL/L (98-107) Carbon Dioxide Level 27 MMOL/L (21-32) Anion Gap 7 mmol/L (5-15) Blood Urea Nitrogen 17 mg/dL (7-18) Creatinine 1.1 MG/DL (0.55-1.30) Estimat Glomerular Filtration Rate > 60 mL/min (>60) Glucose Level 110 MG/DL (74-106) H Calcium Level 9.2 MG/DL (8.5-10.1) Phosphorus Level 3.0 MG/DL (2.5-4.9) Magnesium Level 1.7 MG/DL (1.8-2.4) L C-Reactive Protein, Quantitative < 0.4 mg/dL (0.00-0.90) Triglycerides Level 74 MG/DL (30-150) Cholesterol Level 175 MG/DL (< 200) LDL Cholesterol 108 mg/dL (<100) H HDL Cholesterol 67 MG/DL (40-60) H Cholesterol/HDL Ratio 2.6 (3.3-4.4) L Thyroid Stimulating Hormone (TSH) 1.189 uiU/mL (0.358-3.740) Microbiology Date/Time Source Procedure Growth Status 01/30/18 09:20 Stool Received Height (Feet): 5 Height (Inches): 5.00 Weight (Pounds): 286 Medications Current Medications Medications (Trade) Dose Ordered Sig/Eduardo Route PRN Reason Start Time Stop Time Status Last Admin Dose Admin Acetaminophen (Tylenol) 650 mg Q4H PRN ORAL T>100.5 01/29/18 14:30 02/28/18 14:29 Albuterol/ Ipratropium (Albuterol/ Ipratropium) 3 ml Q4H PRN HHN Shortness of Breath 01/29/18 14:30 02/03/18 14:29 Aspirin (ASA) 162 mg DAILY ORAL 01/30/18 09:00 03/01/18 08:59 01/30/18 08:07 Diltiazem HCl (Cardizem) 10 mg Q1H PRN IV HR > 120 BPM 01/29/18 14:30 02/28/18 14:29 Enalaprilat (Vasotec) 2.5 mg Q6H PRN IV SBP > 160mmHg 01/29/18 14:30 02/28/18 14:29 Heparin Sodium (Porcine) (Heparin 5000 units/ml) 5,000 units EVERY 12 HOURS SUBQ 01/29/18 21:00 02/28/18 20:59 01/30/18 08:11 Nitroglycerin (Ntg) 0.4 mg Q5MIN X 3 DOSES PRN SL Prn Chest Pain 01/29/18 14:30 02/28/18 14:29 Ondansetron HCl (Zofran) 4 mg Q6H PRN IVP Nausea & Vomiting 01/29/18 14:30 02/28/18 14:29 Temazepam (Restoril) 15 mg HSPRN PRN ORAL Insomnia 01/29/18 21:00 02/05/18 20:59 Assessment/Plan Status: stable Assessment/Plan Assessment: Dehydration Colitis AFIB HTN DM Aortic regurgitation Plan: Echo IV fluid hydration cultures C. diff Hold rate control Continue BP management Serial echo as outpatient to monitor AR, no indication for intervention Outpatient stress test to evaluate risk factors No indication for cardiac catheterization at this time Stoney Casey M.D. Jan 30, 2018 11:21
--- NOTE | 2018-01-30 11:27 | Consultation ---
History of Present Illness General Date patient seen: Jan 30, 2018 Chief Complaint: Dizziness Referring physician: SARAH NAJERA Reason for Consultation: SEVERE DIARRHEA Present Illness HPI 57-year-old male with hx of afib, HTN presented to ED complaining of dizziness and weakness for 2 days. States he noticed blood pressure was low. last 2 weeks he's been having persistent diarrhea. He had prior to onset of diarrhea he had completed antibiotic course prescribed for a "bug bite". Pt is admitted to telemetry for further work up. Allergies: Coded Allergies: PENICILLINS (Verified Adverse Reaction, Unknown, 07/23/15) Medication History Scheduled Aspirin* (Aspirin*), 81 MG ORAL DAILY, (Reported) Atorvastatin Calcium* (Atorvastatin Calcium*), MG ORAL BEDTIME, (Reported) Losartan/Hydrochlorothiazide (Losartan-Hctz 100-25 Mg Tab), 1 TAB ORAL DAILY, ( Reported) Discontinued Medications Diphenhydramine Hcl* (Benadryl*), 50 MG ORAL Q6H PRN for Itching Discontinued Reason: Pt stopped taking med Hydrochlorothiazide* (Hydrochlorothiazide*), 25 MG ORAL DAILY Discontinued Reason: Pt stopped taking med Lisinopril (Lisinopril*), 20 MG ORAL DAILY, (Reported) Discontinued Reason: Pt stopped taking med Prednisone* (Prednisone*), 60 MG ORAL DAILY Discontinued Reason: Pt stopped taking med Patient History Healthcare decision maker Resuscitation status Full Code Advanced Directive on File Past Medical/Surgical History Past Medical/Surgical History: (1) HTN (hypertension) (2) Severe diarrhea (3) Atrial fibrillation Review of Systems All Other Systems: negative except mentioned in HPI Physical Exam General Appearance: WD/WN Lines, tubes and drains: peripheral HEENT: normocephalic, atraumatic Neck: non-tender, normal alignment Respiratory/Chest: chest wall non-tender, lungs clear Cardiovascular/Chest: normal peripheral pulses Abdomen: normal bowel sounds Genitourinary/Rectal: normal genital exam Extremities: normal range of motion Last 24 Hour Vital Signs Date Time Temp Pulse Resp B/P (MAP) Pulse Ox O2 Delivery O2 Flow Rate FiO2 01/30/18 09:00 Room Air 01/30/18 08:00 98.5 96 21 107/70 (82) 96 98.5 01/30/18 08:00 88 01/30/18 04:00 97.6 81 18 115/58 (77) 96 97.6 01/30/18 04:00 91 01/30/18 00:00 97.9 99 18 98/67 (77) 97 97.9 01/30/18 00:00 86 01/29/18 21:00 Room Air 01/29/18 20:00 80 01/29/18 20:00 98.3 96 18 117/61 (79) 96 98.3 01/29/18 16:07 Room Air 01/29/18 16:00 90 01/29/18 15:05 98.1 83 20 98/62 100 Room Air 98.1 01/29/18 14:25 98.1 83 20 98/62 100 Room Air 98.1 01/29/18 13:00 98.1 91 28 96/59 97 Room Air 98.1 01/29/18 11:51 98.1 93 20 97/65 100 Room Air 98.1 Intake and Output 01/29/18 01/30/18 19:00 07:00 Intake Total 2340 ml 450 ml Balance 2340 ml 450 ml Intake Oral 240 ml 450 ml IV Total 2100 ml # Voids 3 Laboratory Tests Test 01/29/18 11:28 01/29/18 16:55 01/30/18 07:10 Urine Color Yellow Urine Appearance Slightly cloudy Urine pH 8 (4.5-8.0) Urine Specific [place] 1.010 (1.005-1.035) Urine Protein Negative (NEGATIVE) Urine Glucose (UA) Negative (NEGATIVE) Urine Ketones Negative (NEGATIVE) Urine Occult Blood Negative (NEGATIVE) Urine Nitrite Negative (NEGATIVE) Urine Bilirubin Negative (NEGATIVE) Urine Urobilinogen 8 MG/DL (NORMAL) H Urine Leukocyte Esterase 1+ (NEGATIVE) H Urine RBC 0-2 /HPF (0 - 0) H Urine WBC 0-2 /HPF (0 - 0) Urine Squamous Epithelial Cells Occasional /LPF Urine Bacteria Occasional /HPF (NONE) Troponin I 0.000 ng/mL (0.000-0.056) 0.017 ng/mL (0.000-0.056) White Blood Count 11.4 K/UL (4.8-10.8) H Red Blood Count 5.95 M/UL (4.70-6.10) Hemoglobin 16.6 G/DL (14.2-18.0) Hematocrit 50.1 % (42.0-52.0) Mean Corpuscular Volume 84 FL (80-99) Mean Corpuscular Hemoglobin 28.0 PG (27.0-31.0) Mean Corpuscular Hemoglobin Concent 33.2 G/DL (32.0-36.0) Red Cell Distribution Width 12.0 % (11.6-14.8) Platelet Count 184 K/UL (150-450) Mean Platelet Volume 8.5 FL (6.5-10.1) Neutrophils (%) (Auto) 58.5 % (45.0-75.0) Lymphocytes (%) (Auto) 29.9 % (20.0-45.0) Monocytes (%) (Auto) 8.9 % (1.0-10.0) Eosinophils (%) (Auto) 1.2 % (0.0-3.0) Basophils (%) (Auto) 1.4 % (0.0-2.0) Prothrombin Time 10.8 SEC (9.30-11.50) Prothromb Time International Ratio 1.0 (0.9-1.1) Activated Partial Thromboplast Time 28 SEC (23-33) Sodium Level 138 MMOL/L (136-145) Potassium Level 4.2 MMOL/L (3.5-5.1) Chloride Level 104 MMOL/L (98-107) Carbon Dioxide Level 27 MMOL/L (21-32) Anion Gap 7 mmol/L (5-15) Blood Urea Nitrogen 17 mg/dL (7-18) Creatinine 1.1 MG/DL (0.55-1.30) Estimat Glomerular Filtration Rate > 60 mL/min (>60) Glucose Level 110 MG/DL (74-106) H Calcium Level 9.2 MG/DL (8.5-10.1) Phosphorus Level 3.0 MG/DL (2.5-4.9) Magnesium Level 1.7 MG/DL (1.8-2.4) L C-Reactive Protein, Quantitative < 0.4 mg/dL (0.00-0.90) Triglycerides Level 74 MG/DL (30-150) Cholesterol Level 175 MG/DL (< 200) LDL Cholesterol 108 mg/dL (<100) H HDL Cholesterol 67 MG/DL (40-60) H Cholesterol/HDL Ratio 2.6 (3.3-4.4) L Thyroid Stimulating Hormone (TSH) 1.189 uiU/mL (0.358-3.740) Microbiology Date/Time Source Procedure Growth Status 01/30/18 09:20 Stool Received Height (Feet): 5 Height (Inches): 5.00 Weight (Pounds): 286 Medications Current Medications Medications (Trade) Dose Ordered Sig/Eduardo Route PRN Reason Start Time Stop Time Status Last Admin Dose Admin Acetaminophen (Tylenol) 650 mg Q4H PRN ORAL T>100.5 01/29/18 14:30 02/28/18 14:29 Albuterol/ Ipratropium (Albuterol/ Ipratropium) 3 ml Q4H PRN HHN Shortness of Breath 01/29/18 14:30 02/03/18 14:29 Aspirin (ASA) 162 mg DAILY ORAL 01/30/18 09:00 03/01/18 08:59 01/30/18 08:07 Diltiazem HCl (Cardizem) 10 mg Q1H PRN IV HR > 120 BPM 01/29/18 14:30 02/28/18 14:29 Enalaprilat (Vasotec) 2.5 mg Q6H PRN IV SBP > 160mmHg 01/29/18 14:30 02/28/18 14:29 Heparin Sodium (Porcine) (Heparin 5000 units/ml) 5,000 units EVERY 12 HOURS SUBQ 01/29/18 21:00 02/28/18 20:59 01/30/18 08:11 Nitroglycerin (Ntg) 0.4 mg Q5MIN X 3 DOSES PRN SL Prn Chest Pain 01/29/18 14:30 02/28/18 14:29 Ondansetron HCl (Zofran) 4 mg Q6H PRN IVP Nausea & Vomiting 01/29/18 14:30 02/28/18 14:29 Temazepam (Restoril) 15 mg HSPRN PRN ORAL Insomnia 01/29/18 21:00 02/05/18 20:59 Assessment/Plan Problem List: (1) Colitis ICD Codes: K52.9 - Noninfective gastroenteritis and colitis, unspecified SNOMED: 83812179 (2) Dehydration ICD Codes: E86.0 - Dehydration SNOMED: 70661983 (3) Atrial fibrillation ICD Codes: I48.91 - Unspecified atrial fibrillation SNOMED: 63657272 Qualifiers: Qualified Codes: I48.91 - Unspecified atrial fibrillation (4) HTN (hypertension) ICD Codes: I10 - Essential (primary) hypertension SNOMED: 09048097 Assessment/Plan iv fluids check stool for cdiff monitor heart rate cardio evaluation. Ashley Sanderson MD Jan 30, 2018 11:27
[2018-01-30 11:48] VITALS: BP 111/79
[2018-01-30 16:00] VITALS: BP 123/89
[2018-01-30 20:00] VITALS: BP 93/74
--- NOTE | 2018-01-30 22:00 | History and Physical Report ---
DATE OF ADMISSION: 01/29/2018 TIME: 2 p.m. CONSULTANTS: 1. Ashley Sanderson M.D. 2. Wilfrido Jarquin M.D. 3. Ye Chamberlain M.D. 4. CHIEF COMPLAINT: Low blood pressure, dizziness and weakness. BRIEF HISTORY: This is a 57-year-old male, who lives at home with history of atrial fibrillation intermittently presents with finding low blood pressure x3 days, occasional dizziness. No loss of consciousness. The patient came into [facility], diagnosed with atrial fibrillation and also colitis and weakness and dizziness and admitted to telemetry for further care. Currently calm in bed, feeling better. No complaint otherwise. PAST MEDICAL HISTORY: Atrial fibrillation. PAST SURGICAL HISTORY: None. MEDICATIONS: Aspirin, temazepam, ciprofloxacin x1, heparin, albuterol, Tylenol, Zofran, enalapril, diltiazem, and nitroglycerin. ALLERGIES: Penicillin. SOCIAL HISTORY: Positive smoking. No alcohol. No intravenous drug abuse. FAMILY HISTORY: Noncontributory. REVIEW OF SYSTEMS: No chest pain. Slight short of breath. No nausea, vomiting, or diarrhea. PHYSICAL EXAMINATION: GENERAL: Calm in bed, oriented x3, no acute distress. VITAL SIGNS: Temperature is 97 degrees, pulse 86, respirations 22 and blood pressure 111/79. CARDIOVASCULAR: No murmur. LUNGS: Distant and clear. ABDOMEN: Bowel sounds positive. Nontender. Nondistended. EXTREMITIES: No cyanosis, clubbing or edema. NEUROLOGIC: The patient moves all extremities, slightly weak. LABORATORY AND DIAGNOSTIC DATA: White count 11.5, otherwise CBC is normal. BMP shows glucose 110 and magnesium 1.7, otherwise BMP is normal. Troponin 0.017. Urinalysis show 1+ leukocyte esterase. ASSESSMENT: 1. Atrial fibrillation. 2. Colitis. 3. Weakness. 4. Hypertension. 5. Dizziness. 6. UTI. PLAN: 1. Continue previous medications. 2. Blood pressure control. 3. Dietary followup. 4. Cardiology followup. 5. Antibiotics per Infectious Disease. 6. CBC and BMP in the morning. 7. We will continue to follow the patient medically. Miguel Caro D.O. DR: VIOLA JOB#: [id number] CC:
[2018-01-31] VITALS: BP 109/65
[2018-01-31 04:00] VITALS: BP 115/69
[2018-01-31 07:35] LABS: BASOPHILS % (AUTO) 0.8 % (0.0-2.0); EOSINOPHILS % (AUTO) 2.3 % (0.0-3.0); HEMATOCRIT 48.8 % (42.0-52.0); HEMOGLOBIN 16.2 G/DL (14.2-18.0); LYMPHOCYTES % (AUTO) 36.5 % (20.0-45.0); MEAN CORPUSCULAR VOLUME 84 FL (80-99); MONOCYTES % (AUTO) 9.6 % (1.0-10.0); NEUTROPHILS % (AUTO) 50.8 % (45.0-75.0); PLATELET COUNT 195 K/UL (150-450); RED CELL DISTRIBUTION WIDTH 11.8 % (11.6-14.8); WHITE BLOOD COUNT 9.4 K/UL (4.8-10.8)
[2018-01-31 07:54] LABS: ALANINE AMINOTRANSFERASE 46 U/L (12-78); ALBUMIN/GLOBULIN RATIO 0.9 (1.0-2.7); ALKALINE PHOSPHATASE 37 U/L (46-116); ANION GAP 4 mmol/L (5-15); ASPARTATE AMINO TRANSFERASE 27 U/L (15-37); BILIRUBIN,TOTAL 0.8 MG/DL (0.2-1.0); BLOOD UREA NITROGEN 16 mg/dL (7-18); CALCIUM 8.9 MG/DL (8.5-10.1); CARBON DIOXIDE 27 MMOL/L (21-32); CHLORIDE 105 MMOL/L (98-107); CREATININE 1.2 MG/DL (0.55-1.30); SODIUM 136 MMOL/L (136-145)
[2018-01-31 08:00] VITALS: BP 104/72
[2018-01-31] MEDS: Aspirin Baby 81mg ORAL SCH (08:01)
[2018-01-31] MEDS: Heparin 5000 units/ml inj SUBQ SCH (08:05)
--- NOTE | 2018-01-31 09:42 | Infectious Diseases Prog Note ---
Assessment/Plan Assessment/Plan Mr. Reyes is a 57 yo male with PMHx of asthma, A. fib and HTN who presented to the ED yesterday with diarrhea. # Diarrhea - Continues - Unclear etiology - Not likely to be infectious. - WBCs 13.5 on admission now resolved Afebrile - Stool Cx, O and P - C. diff (toxin neg) - No risk factors for parasitic infection #HTN #A.fib #Asthma PLAN - Agree with D/Cing patient - f/u stool studies - Supportive care Thank you for consulting us for the care of this patient. We will continue to follow with you. Subjective Allergies: Coded Allergies: PENICILLINS (Verified Adverse Reaction, Unknown, 07/23/15) Subjective Patient reports diarrhea yesterday No N/V or fever Objective Vital Signs Last 24 Hour Vital Signs Date Time Temp Pulse Resp B/P (MAP) Pulse Ox O2 Delivery O2 Flow Rate FiO2 01/31/18 09:00 Room Air 01/31/18 08:00 98.2 93 20 104/72 (83) 98 98.2 01/31/18 08:00 89 01/31/18 04:00 97.6 77 18 115/69 (84) 98 97.6 01/31/18 04:00 99 01/31/18 00:00 97.8 62 18 109/65 (80) 98 97.8 01/31/18 00:00 85 01/30/18 21:00 Room Air 01/30/18 20:00 86 01/30/18 20:00 97.9 101 22 93/74 (80) 98 97.9 01/30/18 16:00 97.9 88 18 123/89 (100) 97 97.9 01/30/18 16:00 88 01/30/18 12:00 86 01/30/18 11:48 97.7 86 22 111/79 (90) 99 97.7 Height (Feet): 5 Height (Inches): 5.00 Weight (Pounds): 286 Objective Gen: NAD, well appearing, alert HEENT: NCAT, MMM, EOMI, PERRL, No Oral lesion, no scleral icterus LUNGS: CTAB, No W/C, No Accessory muscle use CARDS: RRR, S1, S2, No M/R/G, ABD: Soft, NT, ND, No R/G, + BS, Ext: C/C/E, Pulses 2+ B/L (DP, Rad): NEURO: A/O x 4, Strength and Sensation Grossly intact Microbiology Date/Time Source Procedure Growth Status 01/29/18 11:15 Blood Blood Culture - Preliminary NO GROWTH AFTER 24 HOURS Resulted 01/29/18 11:05 Blood Blood Culture - Preliminary NO GROWTH AFTER 24 HOURS Resulted 01/30/18 09:20 Stool Clostridium difficile Toxin Assay - Final Complete Laboratory Tests Test 01/31/18 06:45 White Blood Count 9.4 K/UL (4.8-10.8) Red Blood Count 5.80 M/UL (4.70-6.10) Hemoglobin 16.2 G/DL (14.2-18.0) Hematocrit 48.8 % (42.0-52.0) Mean Corpuscular Volume 84 FL (80-99) Mean Corpuscular Hemoglobin 28.0 PG (27.0-31.0) Mean Corpuscular Hemoglobin Concent 33.2 G/DL (32.0-36.0) Red Cell Distribution Width 11.8 % (11.6-14.8) Platelet Count 195 K/UL (150-450) Mean Platelet Volume 8.5 FL (6.5-10.1) Neutrophils (%) (Auto) 50.8 % (45.0-75.0) Lymphocytes (%) (Auto) 36.5 % (20.0-45.0) Monocytes (%) (Auto) 9.6 % (1.0-10.0) Eosinophils (%) (Auto) 2.3 % (0.0-3.0) Basophils (%) (Auto) 0.8 % (0.0-2.0) Sodium Level 136 MMOL/L (136-145) Potassium Level 4.0 MMOL/L (3.5-5.1) Chloride Level 105 MMOL/L (98-107) Carbon Dioxide Level 27 MMOL/L (21-32) Anion Gap 4 mmol/L (5-15) L Blood Urea Nitrogen 16 mg/dL (7-18) Creatinine 1.2 MG/DL (0.55-1.30) Estimat Glomerular Filtration Rate > 60 mL/min (>60) Glucose Level 99 MG/DL (74-106) Calcium Level 8.9 MG/DL (8.5-10.1) Total Bilirubin 0.8 MG/DL (0.2-1.0) Aspartate Amino Transf (AST/SGOT) 27 U/L (15-37) Alanine Aminotransferase (ALT/SGPT) 46 U/L (12-78) Alkaline Phosphatase 37 U/L (46-116) L Troponin I 0.000 ng/mL (0.000-0.056) Total Protein 6.3 G/DL (6.4-8.2) L Albumin 3.0 G/DL (3.4-5.0) L Globulin 3.3 g/dL Albumin/Globulin Ratio 0.9 (1.0-2.7) L Current Medications Medications (Trade) Dose Ordered Sig/Eduardo Route PRN Reason Start Time Stop Time Status Last Admin Dose Admin Acetaminophen (Tylenol) 650 mg Q4H PRN ORAL T>100.5 01/29/18 14:30 02/28/18 14:29 Albuterol/ Ipratropium (Albuterol/ Ipratropium) 3 ml Q4H PRN HHN Shortness of Breath 01/29/18 14:30 02/03/18 14:29 Aspirin (ASA) 162 mg DAILY ORAL 01/30/18 09:00 03/01/18 08:59 01/31/18 08:01 Diltiazem HCl (Cardizem) 10 mg Q1H PRN IV HR > 120 BPM 01/29/18 14:30 02/28/18 14:29 Enalaprilat (Vasotec) 2.5 mg Q6H PRN IV SBP > 160mmHg 01/29/18 14:30 02/28/18 14:29 Heparin Sodium (Porcine) (Heparin 5000 units/ml) 5,000 units EVERY 12 HOURS SUBQ 01/29/18 21:00 02/28/18 20:59 01/31/18 08:05 Nitroglycerin (Ntg) 0.4 mg Q5MIN X 3 DOSES PRN SL Prn Chest Pain 01/29/18 14:30 02/28/18 14:29 Ondansetron HCl (Zofran) 4 mg Q6H PRN IVP Nausea & Vomiting 01/29/18 14:30 02/28/18 14:29 Temazepam (Restoril) 15 mg HSPRN PRN ORAL Insomnia 01/29/18 21:00 02/05/18 20:59 01/30/18 21:00 Stoney Tanner M.D. Jan 31, 2018 09:42
--- NOTE | 2018-01-31 10:00 | General Progress Note ---
Assessment/Plan Problem List: (1) Severe diarrhea ICD Codes: K52.9 - Noninfective gastroenteritis and colitis, unspecified SNOMED: 052498718 (2) Dehydration ICD Codes: E86.0 - Dehydration SNOMED: 49967908 (3) HTN (hypertension) ICD Codes: I10 - Essential (primary) hypertension SNOMED: 35668310 Assessment/Plan improved WBC on abx fu stool studies ok to dc GI stand point last colonoscopy per patient last year Subjective ROS Limited/Unobtainable: Yes Allergies: Coded Allergies: PENICILLINS (Verified Adverse Reaction, Unknown, 07/23/15) Subjective loose stools but better wants to go home Objective Last 24 Hour Vital Signs Date Time Temp Pulse Resp B/P (MAP) Pulse Ox O2 Delivery O2 Flow Rate FiO2 01/31/18 09:00 Room Air 01/31/18 08:00 98.2 93 20 104/72 (83) 98 98.2 01/31/18 08:00 89 01/31/18 04:00 97.6 77 18 115/69 (84) 98 97.6 01/31/18 04:00 99 01/31/18 00:00 97.8 62 18 109/65 (80) 98 97.8 01/31/18 00:00 85 01/30/18 21:00 Room Air 01/30/18 20:00 86 01/30/18 20:00 97.9 101 22 93/74 (80) 98 97.9 01/30/18 16:00 97.9 88 18 123/89 (100) 97 97.9 01/30/18 16:00 88 01/30/18 12:00 86 01/30/18 11:48 97.7 86 22 111/79 (90) 99 97.7 Intake and Output 01/30/18 01/31/18 19:00 07:00 # Voids 3 5 # Bowel Movements 1 1 Laboratory Tests 01/31/18 06:45: White Blood Count 9.4, Red Blood Count 5.80, Hemoglobin 16.2, Hematocrit 48.8, Mean Corpuscular Volume 84, Mean Corpuscular Hemoglobin 28.0, Mean Corpuscular Hemoglobin Concent 33.2, Red Cell Distribution Width 11.8, Platelet Count 195, Mean Platelet Volume 8.5, Neutrophils (%) (Auto) 50.8, Lymphocytes (%) (Auto) 36.5, Monocytes (%) (Auto) 9.6, Eosinophils (%) (Auto) 2.3, Basophils (%) (Auto ) 0.8, Sodium Level 136, Potassium Level 4.0, Chloride Level 105, Carbon Dioxide Level 27, Anion Gap 4L, Blood Urea Nitrogen 16, Creatinine 1.2, Estimat Glomerular Filtration Rate > 60, Glucose Level 99, Calcium Level 8.9, Total Bilirubin 0.8, Aspartate Amino Transf (AST/SGOT) 27, Alanine Aminotransferase ( ALT/SGPT) 46, Alkaline Phosphatase 37L, Troponin I 0.000, Total Protein 6.3L, Albumin 3.0L, Globulin 3.3, Albumin/Globulin Ratio 0.9L Height (Feet): 5 Height (Inches): 5.00 Weight (Pounds): 286 General Appearance: alert EENT: normal ENT inspection Neck: supple Cardiovascular: normal rate Respiratory/Chest: decreased breath sounds Abdomen: normal bowel sounds, non tender, soft Extremities: non-tender Wilfrido Jarquin MD Jan 31, 2018 10:00
--- NOTE | 2018-01-31 11:08 | Cardiology Progress Note ---
Assessment/Plan Status: stable Assessment/Plan Assessment: Dehydration Colitis AFIB HTN DM Aortic regurgitation Plan: Echo IV fluid hydration cultures C. diff Hold rate control Continue BP management Serial echo as outpatient to monitor AR, no indication for intervention Outpatient stress test to evaluate risk factors No indication for cardiac catheterization at this time Continue cardizem for AFIB Xarelto for Anticoagulation Subjective Cardiovascular: Reports: no symptoms Respiratory: Reports: no symptoms Gastrointestinal/Abdominal: Reports: no symptoms Genitourinary: Reports: no symptoms Subjective No acute events, feels better, diarrhea resolved, no CP. vitals stable. wants to go home Objective Last 24 Hour Vital Signs Date Time Temp Pulse Resp B/P (MAP) Pulse Ox O2 Delivery O2 Flow Rate FiO2 01/31/18 09:00 Room Air 01/31/18 08:00 98.2 93 20 104/72 (83) 98 98.2 01/31/18 08:00 89 01/31/18 04:00 97.6 77 18 115/69 (84) 98 97.6 01/31/18 04:00 99 01/31/18 00:00 97.8 62 18 109/65 (80) 98 97.8 01/31/18 00:00 85 01/30/18 21:00 Room Air 01/30/18 20:00 86 01/30/18 20:00 97.9 101 22 93/74 (80) 98 97.9 01/30/18 16:00 97.9 88 18 123/89 (100) 97 97.9 01/30/18 16:00 88 01/30/18 12:00 86 01/30/18 11:48 97.7 86 22 111/79 (90) 99 97.7 General Appearance: no apparent distress EENT: PERRL/EOMI, normal ENT inspection Neck: non-tender, normal alignment Rhythm: Afib Cardiovascular: normal rate, irregularly irregular Respiratory/Chest: chest wall non-tender, lungs clear Abdomen: normal bowel sounds, non tender Extremities: normal range of motion, non-tender Neurologic: outboard technician II-XII grossly normal, no motor/sensory deficits Intake and Output 01/30/18 01/31/18 19:00 07:00 # Voids 3 5 # Bowel Movements 1 1 Laboratory Tests Test 01/31/18 06:45 White Blood Count 9.4 K/UL (4.8-10.8) Red Blood Count 5.80 M/UL (4.70-6.10) Hemoglobin 16.2 G/DL (14.2-18.0) Hematocrit 48.8 % (42.0-52.0) Mean Corpuscular Volume 84 FL (80-99) Mean Corpuscular Hemoglobin 28.0 PG (27.0-31.0) Mean Corpuscular Hemoglobin Concent 33.2 G/DL (32.0-36.0) Red Cell Distribution Width 11.8 % (11.6-14.8) Platelet Count 195 K/UL (150-450) Mean Platelet Volume 8.5 FL (6.5-10.1) Neutrophils (%) (Auto) 50.8 % (45.0-75.0) Lymphocytes (%) (Auto) 36.5 % (20.0-45.0) Monocytes (%) (Auto) 9.6 % (1.0-10.0) Eosinophils (%) (Auto) 2.3 % (0.0-3.0) Basophils (%) (Auto) 0.8 % (0.0-2.0) Sodium Level 136 MMOL/L (136-145) Potassium Level 4.0 MMOL/L (3.5-5.1) Chloride Level 105 MMOL/L (98-107) Carbon Dioxide Level 27 MMOL/L (21-32) Anion Gap 4 mmol/L (5-15) L Blood Urea Nitrogen 16 mg/dL (7-18) Creatinine 1.2 MG/DL (0.55-1.30) Estimat Glomerular Filtration Rate > 60 mL/min (>60) Glucose Level 99 MG/DL (74-106) Calcium Level 8.9 MG/DL (8.5-10.1) Total Bilirubin 0.8 MG/DL (0.2-1.0) Aspartate Amino Transf (AST/SGOT) 27 U/L (15-37) Alanine Aminotransferase (ALT/SGPT) 46 U/L (12-78) Alkaline Phosphatase 37 U/L (46-116) L Troponin I 0.000 ng/mL (0.000-0.056) Total Protein 6.3 G/DL (6.4-8.2) L Albumin 3.0 G/DL (3.4-5.0) L Globulin 3.3 g/dL Albumin/Globulin Ratio 0.9 (1.0-2.7) L Microbiology Date/Time Source Procedure Growth Status 01/29/18 11:15 Blood Blood Culture - Preliminary NO GROWTH AFTER 24 HOURS Resulted 01/29/18 11:05 Blood Blood Culture - Preliminary NO GROWTH AFTER 24 HOURS Resulted 01/30/18 09:20 Stool Stool Culture - Preliminary Resulted 01/30/18 09:20 Stool Clostridium difficile Toxin Assay - Final Complete Stoney Casey M.D. Jan 31, 2018 11:08
[2018-01-31] MEDS ORDERED: XARELTO20 MG ORAL (11:15)
[2018-01-31 11:29] VITALS: BP 115/80
--- NOTE | 2018-01-31 11:53 | General Progress Note ---
Assessment/Plan Problem List: (1) UTI (urinary tract infection) ICD Codes: N39.0 - Urinary tract infection, site not specified SNOMED: 31847157 (2) Dizziness ICD Codes: R42 - Dizziness and giddiness SNOMED: 435931464, 599796295 (3) Weak ICD Codes: R53.1 - Weakness SNOMED: 09876143 (4) Hypertension ICD Codes: I10 - Essential (primary) hypertension SNOMED: 97713297 (5) Colitis ICD Codes: K52.9 - Noninfective gastroenteritis and colitis, unspecified SNOMED: 11326040 (6) Atrial fibrillation ICD Codes: I48.91 - Unspecified atrial fibrillation SNOMED: 00452437 Qualifiers: Qualified Codes: I48.91 - Unspecified atrial fibrillation Status: stable, progressing Assessment/Plan dc if clear by team Subjective Allergies: Coded Allergies: PENICILLINS (Verified Adverse Reaction, Unknown, 07/23/15) All Systems: reviewed and negative except above Subjective calm sitting in chair Objective Last 24 Hour Vital Signs Date Time Temp Pulse Resp B/P (MAP) Pulse Ox O2 Delivery O2 Flow Rate FiO2 01/31/18 11:29 98.7 88 20 115/80 (92) 98 98.7 01/31/18 09:00 Room Air 01/31/18 08:00 98.2 93 20 104/72 (83) 98 98.2 01/31/18 08:00 89 01/31/18 04:00 97.6 77 18 115/69 (84) 98 97.6 01/31/18 04:00 99 01/31/18 00:00 97.8 62 18 109/65 (80) 98 97.8 01/31/18 00:00 85 01/30/18 21:00 Room Air 01/30/18 20:00 86 01/30/18 20:00 97.9 101 22 93/74 (80) 98 97.9 01/30/18 16:00 97.9 88 18 123/89 (100) 97 97.9 01/30/18 16:00 88 01/30/18 12:00 86 Intake and Output 01/30/18 01/31/18 19:00 07:00 # Voids 3 5 # Bowel Movements 1 1 Laboratory Tests 01/31/18 06:45: White Blood Count 9.4, Red Blood Count 5.80, Hemoglobin 16.2, Hematocrit 48.8, Mean Corpuscular Volume 84, Mean Corpuscular Hemoglobin 28.0, Mean Corpuscular Hemoglobin Concent 33.2, Red Cell Distribution Width 11.8, Platelet Count 195, Mean Platelet Volume 8.5, Neutrophils (%) (Auto) 50.8, Lymphocytes (%) (Auto) 36.5, Monocytes (%) (Auto) 9.6, Eosinophils (%) (Auto) 2.3, Basophils (%) (Auto ) 0.8, Sodium Level 136, Potassium Level 4.0, Chloride Level 105, Carbon Dioxide Level 27, Anion Gap 4L, Blood Urea Nitrogen 16, Creatinine 1.2, Estimat Glomerular Filtration Rate > 60, Glucose Level 99, Calcium Level 8.9, Total Bilirubin 0.8, Aspartate Amino Transf (AST/SGOT) 27, Alanine Aminotransferase ( ALT/SGPT) 46, Alkaline Phosphatase 37L, Troponin I 0.000, Total Protein 6.3L, Albumin 3.0L, Globulin 3.3, Albumin/Globulin Ratio 0.9L Height (Feet): 5 Height (Inches): 5.00 Weight (Pounds): 286 General Appearance: alert EENT: normal ENT inspection Neck: normal alignment Cardiovascular: normal peripheral pulses, normal rate, regular rhythm Respiratory/Chest: chest wall non-tender, lungs clear, normal breath sounds Abdomen: normal bowel sounds, non tender, soft Extremities: normal inspection Edema: no edema noted Arm (L), no edema noted Arm (R), no edema noted Leg (L), no edema noted Leg (R), no edema noted Pedal (L), no edema noted Pedal (R), no edema noted Generalized Neurologic: responsive, motor weakness Skin: normal pigmentation, warm/dry Miguel Caro DO Jan 31, 2018 11:52
--- NOTE | 2018-01-31 12:17 | Pulmonology Progress Note ---
Assessment/Plan Problems: (1) Colitis (2) Dehydration (3) Atrial fibrillation (4) HTN (hypertension) Assessment/Plan wbc decreasing heart rate controlled Cdiff negative check echo Subjective ROS Limited/Unobtainable: No Constitutional: Reports: no symptoms HEENT: Repors: no symptoms Respiratory: Reports: no symptoms Cardiovascular: Reports: no symptoms Allergies: Coded Allergies: PENICILLINS (Verified Adverse Reaction, Unknown, 07/23/15) Objective Last 24 Hour Vital Signs Date Time Temp Pulse Resp B/P (MAP) Pulse Ox O2 Delivery O2 Flow Rate FiO2 01/31/18 11:29 98.7 88 20 115/80 (92) 98 98.7 01/31/18 09:00 Room Air 01/31/18 08:00 98.2 93 20 104/72 (83) 98 98.2 01/31/18 08:00 89 01/31/18 04:00 97.6 77 18 115/69 (84) 98 97.6 01/31/18 04:00 99 01/31/18 00:00 97.8 62 18 109/65 (80) 98 97.8 01/31/18 00:00 85 01/30/18 21:00 Room Air 01/30/18 20:00 86 01/30/18 20:00 97.9 101 22 93/74 (80) 98 97.9 01/30/18 16:00 97.9 88 18 123/89 (100) 97 97.9 01/30/18 16:00 88 Intake and Output 01/30/18 01/31/18 19:00 07:00 # Voids 3 5 # Bowel Movements 1 1 General Appearance: WD/WN HEENT: normocephalic, atraumatic Respiratory/Chest: chest wall non-tender, lungs clear Cardiovascular: normal peripheral pulses, normal rate Abdomen: normal bowel sounds, soft, non tender Genitourinary: normal external genitalia Extremities: no cyanosis Skin: no rash Microbiology Date/Time Source Procedure Growth Status 01/29/18 11:15 Blood Blood Culture - Preliminary NO GROWTH AFTER 24 HOURS Resulted 01/29/18 11:05 Blood Blood Culture - Preliminary NO GROWTH AFTER 24 HOURS Resulted 01/30/18 09:20 Stool Stool Culture - Preliminary Resulted 01/30/18 09:20 Stool Clostridium difficile Toxin Assay - Final Complete Laboratory Tests 01/31/18 06:45: White Blood Count 9.4, Red Blood Count 5.80, Hemoglobin 16.2, Hematocrit 48.8, Mean Corpuscular Volume 84, Mean Corpuscular Hemoglobin 28.0, Mean Corpuscular Hemoglobin Concent 33.2, Red Cell Distribution Width 11.8, Platelet Count 195, Mean Platelet Volume 8.5, Neutrophils (%) (Auto) 50.8, Lymphocytes (%) (Auto) 36.5, Monocytes (%) (Auto) 9.6, Eosinophils (%) (Auto) 2.3, Basophils (%) (Auto ) 0.8, Sodium Level 136, Potassium Level 4.0, Chloride Level 105, Carbon Dioxide Level 27, Anion Gap 4L, Blood Urea Nitrogen 16, Creatinine 1.2, Estimat Glomerular Filtration Rate > 60, Glucose Level 99, Calcium Level 8.9, Total Bilirubin 0.8, Aspartate Amino Transf (AST/SGOT) 27, Alanine Aminotransferase ( ALT/SGPT) 46, Alkaline Phosphatase 37L, Troponin I 0.000, Total Protein 6.3L, Albumin 3.0L, Globulin 3.3, Albumin/Globulin Ratio 0.9L Current Medications Medications (Trade) Dose Ordered Sig/Eduardo Route PRN Reason Start Time Stop Time Status Last Admin Dose Admin Acetaminophen (Tylenol) 650 mg Q4H PRN ORAL T>100.5 01/29/18 14:30 02/28/18 14:29 Albuterol/ Ipratropium (Albuterol/ Ipratropium) 3 ml Q4H PRN HHN Shortness of Breath 01/29/18 14:30 02/03/18 14:29 Aspirin (ASA) 162 mg DAILY ORAL 01/30/18 09:00 03/01/18 08:59 01/31/18 08:01 Diltiazem HCl (Cardizem) 10 mg Q1H PRN IV HR > 120 BPM 01/29/18 14:30 02/28/18 14:29 Enalaprilat (Vasotec) 2.5 mg Q6H PRN IV SBP > 160mmHg 01/29/18 14:30 02/28/18 14:29 Heparin Sodium (Porcine) (Heparin 5000 units/ml) 5,000 units EVERY 12 HOURS SUBQ 01/29/18 21:00 02/28/18 20:59 01/31/18 08:05 Nitroglycerin (Ntg) 0.4 mg Q5MIN X 3 DOSES PRN SL Prn Chest Pain 01/29/18 14:30 02/28/18 14:29 Ondansetron HCl (Zofran) 4 mg Q6H PRN IVP Nausea & Vomiting 01/29/18 14:30 02/28/18 14:29 Temazepam (Restoril) 15 mg HSPRN PRN ORAL Insomnia 01/29/18 21:00 02/05/18 20:59 01/30/18 21:00 Ashley Sanderson MD Jan 31, 2018 12:17
--- NOTE | 2018-02-02 11:33 | Discharge Summary ---
Discharge Summary Discharge Summary _ DATE OF ADMISSION: 01/29/18 DATE OF DISCHARGE: 01/31/18 REASON FOR ADMISSION: 57 years old male with past medical history significant for atrial fibrillation , hypertension, asthma, presented to emergency department complaining of dizziness and weakness for 2 days. Patient also noted that his blood pressure was low. Patient reported compliance with medication. Patient reported 2 weeks of persistent diarrhea. no blood in the stool. He denied any sick contacts or recent travel. He reported that prior to onset of diarrhea , he just completed antibiotic course, prescribed for a "bug bite". He denied any abdominal pain. No fever ,no chills. No nausea, no vomiting. Upon evaluation patient was afebrile. Heart rate was 105. Patient was hypotensive with blood pressure 92/64 . EKG revealed atrial fibrillation with heart rate 105 . Laboratory workup revealed leukocytosis WBC 13.5. Stable hemoglobin and hematocrit. BUN 20 , creatinine 1.3. Lactic acid 0.8. Stable electrolytes. Patient admitted with diagnoses of colitis, dehydration ,atrial fibrillation, hypertension. CONSULTANTS: odd bundle worker after Dr. Casey pulmonary Dr. Sanderson ID specialist Dr. Chamberlain GI specialist Dr. Jarquin [facility] COURSE: Patient admitted to telemetry floor. Patient started on IV hydration. Cancer Program Director closely followed. Serial troponin 3 were negative. EKG and telemetry revealed no acute ischemic changes. Therefore patient was ruled out for acute OH. Echocardiogram on previous admission revealed preserved ejection fraction and evidence of aortic regurgitation. Cancer Program Director recommended to repeat echocardiogram as outpatient to monitor for aortic regurgitation. No indication for intervention at this time. Heart rate was controlled with Cardizem. Anticoagulation with Xarelto continued for cardioembolic prophylaxis . Hemoglobin and hematocrit remained stable. No evidence of bleeding. Cancer Program Director recommended outpatient stress test. No indication for cardiac catheterization at this time. Infectious disease doctor closely followed. According to infectious disease doctor , diarrhea was of unclear etiology but not likely infected. Stool culture was negative. Stool for C. difficile was negative. Blood culture were negative. Leukocytosis resolved ,no fever. Infectious disease doctor recommended to keep patient off antibiotic and monitor clinically. Supportive care provided. Diarrhea resolved. Blood pressure stabilized. Initial hypotension was likely due to dehydration, brought up by persistent diarrhea. GI specialist closely followed . Oral hydration was encouraged. Antiemetics were on board as needed. Diet was advanced as tolerated. Patient started on H2 stacie. Patient was able to tolerate diet. According to patient, he had colonoscopy a year ago, which was insignificant. GI specialist cleared patient for discharge. Supplemental oxygen and pulmonary toilet were on standby as needed. Pulse oximetry was stable on room air. Respiratory status was stable. Patient clinically improved and was ready for discharge home FINAL DIAGNOSES: Diarrhea Probable colitis Dehydration-resolved Atrial fibrillation Hypertension Aortic regurgitation Asthma DISCHARGE MEDICATIONS: See Medication Reconciliation list. DISCHARGE INSTRUCTIONS: Patient was discharged home. Follow up with the primary care provider in one week. I have been assigned to dictate discharge summary for this account. I was not involved in the patient's management. Libra Spencer NP Feb 02, 2018 11:33
== END 2018-01-31 12:40 | disposition home or self-care (01) | DRG 249 ==
LOC: EMR 11:00 → 2E 12:23 → EDBEDREQ 13:46
DX: E86.0 Dehydration (principal); K52.9 Noninfective gastroenteritis and colitis, unspecified; I48.91 Unspecified atrial fibrillation; I10 Essential (primary) hypertension; I35.1 Nonrheumatic aortic (valve) insufficiency; J45.909 Unspecified asthma, uncomplicated; Z88.0 Allergy status to penicillin
CPT/HCPCS: 36415; 71045; 80048; 80053; 80061; 81003; 82550; 82553; 83605; 83735; 84100; 84443; 84484; 85025; 85610; 85730; 86140; 87040; 87045; 87324; 93005; 93306

== ENCOUNTER 2018-04-21 21:20 | Emergency (ER) | payer MEDICAID ==
[~2018-04-21] VITALS: Ht 165.1 cm; Wt 83.5 kg
[2018-04-21 21:20] VITALS: BP 131/81
[~2018-04-21 21:20] MED LIST changes: +ASPIRIN81 MG ORAL; +ATORVASTATIN CA20 MG ORAL; +LOSARTAN-HCTZ1 EAC1 ORAL; +XARELTO20 MG ORAL
[2018-04-21 21:45] VITALS: BP 141/88
[2018-04-21] MEDS ORDERED: ANUSOL-HC25 MG RECTAL (21:45)
--- NOTE | 2018-04-21 21:45 | Emergency Room Report ---
History of Present Illness General Chief Complaint: Gastrointestinal Bleed Source: Patient Present Illness HPI This is a 58-year-old male with a history of atrial ablation on Xarelto. He presents with chief complaint of rectal bleeding. He had this problem on and off for a long period of time. Usually associated with bowel movement. He has hemorrhoids. He came in tonight because he went to pass some gas in the toilet and he felt blood pouring out. It was bright red blood. No pain. No other injury. Denies any fever chill. Denies any trauma. No lightheadedness. Allergies: Coded Allergies: PENICILLINS (Verified Adverse Reaction, Unknown, 07/23/15) Patient History Past Medical History: see triage record, old chart reviewed, AFib Past Surgical History: none Pertinent Family History: none Social History: Denies: smoking Immunizations: other Reviewed Nursing Documentation: PMH: Agreed; PSxH: Agreed Nursing Documentation-PMH Past Medical History: No History, Except For Hx Cardiac Problems: Yes - afib, Xarelto Hx Hypertension: Yes - Losartan Hx Asthma: Yes - "Nothing after I turned 14....." Hx Cancer: No Hx Gastrointestinal Problems: Yes Hx Neurological Problems: No Hx Neurologic Surgery: No Review of Systems Eye: Denies: eye pain, blurred vision ENT: Denies: ear pain, nose congestion, throat swelling Respiratory: Denies: cough, shortness of breath Cardiovascular: Denies: chest pain, palpitations Gastrointestinal: Denies: abdominal pain, diarrhea, nausea, vomiting Musculoskeletal: Denies: back pain, joint pain Skin: Denies: rash Neurological: Denies: headache, numbness Endocrine: Denies: increased thirst, increased urine Hematologic/Lymphatic: Denies: easy bruising All Other Systems: negative except mentioned in HPI Physical Exam Vital Signs Date Time Temp Pulse Resp B/P (MAP) Pulse Ox O2 Delivery O2 Flow Rate FiO2 04/21/18 21:25 98.2 88 18 142/83 94 Room Air vitals normal Sp02 EP Interpretation: reviewed, normal General Appearance: well appearing, no apparent distress, alert Head: normocephalic, atraumatic Eyes: bilateral eye PERRL, bilateral eye EOMI ENT: hearing grossly normal, normal pharynx Neck: full range of motion, supple, no meningismus Respiratory: chest non-tender, lungs clear, normal breath sounds Cardiovascular #1: regular rate, rhythm, no murmur Gastrointestinal: normal bowel sounds, non tender, no mass, no organomegaly, no bruit, non-distended Rectal: other - Rectal exam: He has soft hemorrhoids, externally. No active bleeding. No thrombosis. Musculoskeletal: back normal, gait/station normal, normal range of motion Psychiatric: mood/affect normal Skin: warm/dry Medical Decision Making Diagnostic Impression: Primary Impression: Bleeding hemorrhoid ER Course Patient presents with a bleeding hemorrhoid. No evidence of internal bleeding. Vital stable. We'll discharge home. Last Vital Signs Date Time Temp Pulse Resp B/P (MAP) Pulse Ox O2 Delivery O2 Flow Rate FiO2 04/21/18 21:25 98.2 88 18 142/83 94 Room Air Status: improved Disposition: HOME, SELF-CARE Condition: Stable Scripts Hydrocortisone Acetate* (ANUSOL-HC*) 25 Mg Supp.rect 1 SUPP RECTAL TWICE A DAY, #14 SUPP Prov: Nikunj Helton MD 04/21/18 Additional Instructions: Follow-up your doctor in 7 days. You may need a referral to see a colorectal surgeon for definitive surgery. Return if symptom worsen. Nikunj Helton MD Apr 21, 2018 21:45
[2018-04-21 23:10] VITALS: BP 142/88
== END 2018-04-21 21:49 | disposition home or self-care (01) ==
LOC: EMR 21:31
DX: K64.9 Unspecified hemorrhoids (principal); K92.2 Gastrointestinal hemorrhage, unspecified; I10 Essential (primary) hypertension; I48.91 Unspecified atrial fibrillation; Z79.01 Long term (current) use of anticoagulants; Z88.0 Allergy status to penicillin
CPT/HCPCS: 99282

== ENCOUNTER 2019-02-13 10:31 | Emergency (ER) | payer MEDICAID ==
[~2019-02-13] VITALS: Ht 165.1 cm; Wt 82.1 kg
[~2019-02-13 10:31] MED LIST changes: +ANUSOL-HC25 MG RECTAL
[2019-02-13] MEDS ORDERED: Mylanta II UD 30ml ORAL ONE (10:45)
[2019-02-13] MEDS ORDERED: Lidocaine 2% Visc 15ml soln ORAL ONE (10:45)
--- NOTE | 2019-02-13 11:00 | NUR ---
ED Nurse Note: Patient walked in ER due to right side CP that radiates to LUE this morning. Patient was cleaning his tour car when he started having the pain. Reports no diaphoresis, N/V or SOB at this time. Patient states his CP got worse when he laying down after eating. Seen by PCP yesterday for the same problem and patient states 'everything checked out and it was ok'. Placed patient on monitoring tech. No ectopy noted. Reassured patient. Bed in lowest position.
[2019-02-13 11:02] LABS: BASOPHILS % (AUTO) 1.4 % (0.0-2.0); EOSINOPHILS % (AUTO) 1.2 % (0.0-3.0); HEMATOCRIT 31.4 % (42.0-52.0); HEMOGLOBIN 9.2 G/DL (14.2-18.0); LYMPHOCYTES % (AUTO) 36.1 % (20.0-45.0); MEAN CORPUSCULAR VOLUME 70 FL (80-99); MONOCYTES % (AUTO) 6.7 % (1.0-10.0); NEUTROPHILS % (AUTO) 54.6 % (45.0-75.0); PLATELET COUNT 235 K/UL (150-450); RED BLOOD COUNT 4.49 M/UL (4.70-6.10); RED CELL DISTRIBUTION WIDTH 17.3 % (11.6-14.8)
[2019-02-13 11:12] LABS: ANION GAP 5 mmol/L (5-15); BLOOD UREA NITROGEN 10 mg/dL (7-18); CALCIUM 8.7 MG/DL (8.5-10.1); CARBON DIOXIDE 27 MMOL/L (21-32); CHLORIDE 107 MMOL/L (98-107); CREATININE 1.1 MG/DL (0.55-1.30); SODIUM 138 MMOL/L (136-145)
[2019-02-13 11:15] VITALS: BP 140/41
[2019-02-13 11:25] LABS: ALANINE AMINOTRANSFERASE 15 U/L (12-78); ALBUMIN 3.4 G/DL (3.4-5.0); ALKALINE PHOSPHATASE 48 U/L (46-116); ASPARTATE AMINO TRANSFERASE 18 U/L (15-37); BILIRUBIN,TOTAL 0.3 MG/DL (0.2-1.0); CKMB 1.6 NG/ML (0.0-3.6); CREATINE KINASE 311 U/L (26-308)
--- NOTE | 2019-02-13 11:26 | Diagnostic Imaging Report ---
Indication: Chest pain Technique: One view of the chest Comparison: 01/29/2018 Findings: Lungs and pleural spaces are clear. Heart size is normal. No significant interim change Impression: No acute process
--- NOTE | 2019-02-13 14:21 | Emergency Room Report ---
History of Present Illness General Chief Complaint: Chest Pain Source: Patient Present Illness Allergies: Coded Allergies: PENICILLINS (Verified Adverse Reaction, Unknown, 07/23/15) Nursing Documentation-[facility] Past Medical History: No History, Except For Hx Cardiac Problems: Yes - afib, Xarelto Hx Hypertension: Yes - Losartan Hx Asthma: Yes - "Nothing after I turned 14....." Hx Cancer: No Hx Gastrointestinal Problems: Yes Hx Neurological Problems: No Hx Neurologic Surgery: No Physical Exam Vital Signs Date Time Temp Pulse Resp B/P (MAP) Pulse Ox O2 Delivery O2 Flow Rate FiO2 02/13/19 10:33 98.1 61 16 146/89 (108) 100 Room Air Medical Decision Making Diagnostic Impression: Primary Impression: Chest pain Additional Impression: Anemia Laboratory Tests Test 02/13/19 10:55 02/13/19 11:08 02/13/19 15:15 White Blood Count 9.0 K/UL (4.8-10.8) 8.2 K/UL (4.8-10.8) Red Blood Count 4.49 M/UL (4.70-6.10) L 4.36 M/UL (4.70-6.10) L Hemoglobin 9.2 G/DL (14.2-18.0) L 9.0 G/DL (14.2-18.0) L Hematocrit 31.4 % (42.0-52.0) L 29.9 % (42.0-52.0) L Mean Corpuscular Volume 70 FL (80-99) L 69 FL (80-99) L Mean Corpuscular Hemoglobin 20.4 PG (27.0-31.0) L 20.6 PG (27.0-31.0) L Mean Corpuscular Hemoglobin Concent 29.3 G/DL (32.0-36.0) L 30.1 G/DL (32.0-36.0) L Red Cell Distribution Width 17.3 % (11.6-14.8) H 17.2 % (11.6-14.8) H Platelet Count 235 K/UL (150-450) 236 K/UL (150-450) Mean Platelet Volume 6.5 FL (6.5-10.1) 6.7 FL (6.5-10.1) Neutrophils (%) (Auto) 54.6 % (45.0-75.0) 43.4 % (45.0-75.0) L Lymphocytes (%) (Auto) 36.1 % (20.0-45.0) 45.4 % (20.0-45.0) H Monocytes (%) (Auto) 6.7 % (1.0-10.0) 7.7 % (1.0-10.0) Eosinophils (%) (Auto) 1.2 % (0.0-3.0) 2.0 % (0.0-3.0) Basophils (%) (Auto) 1.4 % (0.0-2.0) 1.5 % (0.0-2.0) Prothrombin Time 10.4 SEC (9.30-11.50) Prothrombin Time INR 1.0 (0.9-1.1) PTT 26 SEC (23-33) Sodium Level 138 MMOL/L (136-145) Potassium Level 4.0 MMOL/L (3.5-5.1) Chloride Level 107 MMOL/L (98-107) Carbon Dioxide Level 27 MMOL/L (21-32) Anion Gap 5 mmol/L (5-15) Blood Urea Nitrogen 10 mg/dL (7-18) Creatinine 1.1 MG/DL (0.55-1.30) Estimate Glomerular Filtration Rate > 60 mL/min (>60) Glucose Level 99 MG/DL (74-106) Calcium Level 8.7 MG/DL (8.5-10.1) Total Bilirubin 0.3 MG/DL (0.2-1.0) Aspartate Amino Transferase (AST) 18 U/L (15-37) Alanine Aminotransferase (ALT) 15 U/L (12-78) Alkaline Phosphatase 48 U/L (46-116) Total Creatine Kinase 311 U/L (26-308) H Creatine Kinase MB 1.6 NG/ML (0.0-3.6) Creatine Kinase MB Relative Index 0.5 Troponin I 0.000 ng/mL (0.000-0.056) Total Protein 6.8 G/DL (6.4-8.2) Albumin 3.4 G/DL (3.4-5.0) Globulin 3.4 g/dL Albumin/Globulin Ratio 1.0 (1.0-2.7) Lipase 288 U/L (73-393) Urine Opiates Screen Negative (NEGATIVE) Urine Barbiturates Screen Negative (NEGATIVE) Phencyclidine (PCP) Screen Negative (NEGATIVE) Urine Amphetamines Screen Negative (NEGATIVE) Urine Benzodiazepines Screen Negative (NEGATIVE) Urine Cocaine Screen Negative (NEGATIVE) Urine Marijuana (THC) Screen Positive (NEGATIVE) H EKG Diagnostic Results Rate: bradycardiac - S.teodora Rhythm: other - IRBBB, NSST Rhythm Strip Diag. Results EP Interpretation: yes Rate: 50's Rhythm: NSR, no PVC's, no ectopy Chest X-Ray Diagnostic Results Chest X-Ray Diagnostic Results : Chest X-Ray Ordered: Yes # of Views/Limited/Complete: 1 View Indication: Chest Pain EP Interpretation: Yes Interpretation: no consolidation, no effusion, no pneumothorax, no acute cardiopulmonary disease Impression: No acute disease Electronically Signed by: Farideh Mg DO Last Vital Signs Date Time Temp Pulse Resp B/P (MAP) Pulse Ox O2 Delivery O2 Flow Rate FiO2 02/13/19 11:15 57 20 140/41 99 Room Air 02/13/19 10:33 98.1 Referrals: [facility],REFERRING (PCP) Farideh Mg DO Feb 13, 2019 14:21
[2019-02-13 14:23] VITALS: BP 161/83
--- NOTE | 2019-02-13 14:23 | NUR ---
ED Nurse Note: Patient resting in bed using cell phone. Reports no CP or SOB at this time. Bed in lowest position.
[2019-02-13 15:36] LABS: BASOPHILS % (AUTO) 1.5 % (0.0-2.0); HEMATOCRIT 29.9 % (42.0-52.0); LYMPHOCYTES % (AUTO) 45.4 % (20.0-45.0); MEAN CORPUSCULAR VOLUME 69 FL (80-99); MONOCYTES % (AUTO) 7.7 % (1.0-10.0); NEUTROPHILS % (AUTO) 43.4 % (45.0-75.0); PLATELET COUNT 236 K/UL (150-450); RED BLOOD COUNT 4.36 M/UL (4.70-6.10); RED CELL DISTRIBUTION WIDTH 17.2 % (11.6-14.8); WHITE BLOOD COUNT 8.2 K/UL (4.8-10.8)
--- NOTE | 2019-02-13 16:30 | NUR ---
ED Nurse Note: Patient resting in bed, using cell phone. No facial grimacing or guarding noted.
[2019-02-13 17:06] VITALS: BP 140/84
--- NOTE | 2019-02-13 17:06 | NUR ---
ED Nurse Note: Report given to ANTHONY Correa at [facility]/ ambulance personnel. Patient awake, alert, orietned x4. No facial griamcing or guarding noted. Patient is being transferred to [facility] while remaining on campus monitor.
--- NOTE | 2019-02-15 12:59 | Cardiology Report ---
APPROVED REPORT EKG Measurement Heart [id number] Sinus bradycardia Incomplete right bundle branch block Abnormal ECG
== END 2019-02-13 17:06 | disposition short-term general hospital (02) ==
LOC: EMR 11:16
DX: R07.9 Chest pain, unspecified (principal); D64.9 Anemia, unspecified; I48.91 Unspecified atrial fibrillation; Z88.0 Allergy status to penicillin; I10 Essential (primary) hypertension; J45.909 Unspecified asthma, uncomplicated
CPT/HCPCS: 36415; 71045; 80053; 80307; 82550; 82553; 83690; 84484; 85025; 85610; 85730; 93005; 96374; 99284; S0028